=== PATIENT | female | born 1990 | race Caucasian/White ===

== ENCOUNTER 2020-09-12 09:52 | Outpatient (RCR) | payer OTHER, SELFPAY ==
[2020-09-12 11:47] LABS: Glucose 1 Hour PP 50gm Dose 46 mg/dL
[2020-09-12 12:29] LABS: HIV 1/2 Ab P24 Ag Result Negative (Negative)
[2020-09-13] MEDS: RHO(D) IMMUNE GLOBULIN 300 MCG/2 ML SYRINGE IM (13:13)
[2020-09-13 13:26] LABS: Rapid Plasma Reagin Non-Reactive (NonReactive)
== END 2020-12-11 23:59 | disposition home or self-care (01) ==
LOC: ANHLAB 09:52
PROVIDERS: Visit Provider Obstetrics & Gynecology
DX: Z11.4 Encounter for screening for human immunodeficiency virus [HIV] (principal); Z29.13 Encounter for prophylactic Rho(D) immune globulin; O36.0130 Maternal care for anti-D [Rh] antibodies, third trimester, not applicable or unspecified; Z3A.00 Weeks of gestation of pregnancy not specified
CPT/HCPCS: 36415; 82947; 85461; 86592; 86703; 90384; 96372; G0432; J2790

== ENCOUNTER 2020-11-16 08:05 | Emergency (ER) | payer OTHER, SELFPAY ==
--- NOTE | ~2020-11-16 | CT_ITS ---
EXAMINATION: CT brain wo/w con DATE: 11/16/2020 11:52 INDICATION: Headache. TECHNIQUE: Computed tomography (CT) of the head was performed without and with 100 mL Omnipaque 350 i ntravenous contrast. The mA was adjusted according to patient size. Iterative reconstruction techniqu e was employed. The dose-length product was 1210.67 mGy-cm. COMPARISON: None FINDINGS: There is no intracranial hemorrhage, acute infarction, or abnormal intracranial mass lesion . The pituitary is normal in size. The dural venous sinuses are normal. The ventricles are normal in size. There is mild mucosal thickening in the ethmoid sinuses. There are no pathologically enlarged l ymph nodes. The mastoid air cells are normal. IMPRESSION: 1. Normal brain. Reviewed, dictated and finalized at location A. IMPRESSION: 1. Normal brain.
[2020-11-16 08:10] VITALS: BP 155/105; PULSE 90; RESP 20; TEMP 36.1; O2SAT 100
--- NOTE | 2020-11-16 09:32 | ED.HA ---
HPI - Headache General Chief Complaint: Headache Stated Complaint: headache Time Seen by Provider: 11/16/20 09:04 Source: patient Mode of arrival: ambulatory Limitations: no limitations History of Present Illness HPI Narrative: Patient is a 30 year old female who presents with a headache starting last pm. She reports she is 5 days post from c section. She reports delivery at [facility] for high risk with preeclampsia monitoring. She reports gestational hypertension. No hypertension in the past. She reports being seen at [facility] for headache last p.m. with elevated blood pressure. She reports being given medication in the ED for hypertension and [facility] which she has not picked up as of this time. She reports increased headache this am. She denies chest pain, shortness of breath, abdominal pain or fever. She denies other complaints at this time. She reports no significant medical history. elicited complaint: headache Related Data Home Medications Medication Instructions Recorded Confirmed Adults Multivitamin 1 tablet PO DAILY 06/10/19 06/10/19 Allergies Allergy/AdvReac Type Severity Reaction Status Date / Time NSAIDS (Non-Steroidal AdvReac Intermediate Nausea and Verified 06/10/19 19:16 Anti-Inflamma Vomiting Review of Systems Review of Systems: Narrative: CONSTITUTIONAL: Denies fever, chills, or sweats. EYES: Denies visual changes, redness, or discharge. ENT: Denies rhinorrhea, congestion, sore throat, or otalgia. CARDIOVASCULAR: Denies chest pain, palpitations, or edema. RESPIRATORY: Denies cough or dyspnea. GASTROINTESTINAL: Denies abdominal pain, nausea, vomiting, or diarrhea. GENITOURINARY: Denies dysuria or hematuria. SKIN: Denies rash or itching. MUSCULOSKELETAL: Denies back pain, joint pain, or myalgia. NEUROLOGIC: Reports headache, denies numbness, dizziness, or weakness. PSYCHIATRIC: Denies anxiety or depression. PEND[facility] SALE TO [facility] Past Medical History Medical History Gestational hypertension Pancreatitis Surgical History Surgical History H/O gastric bypass Family History Family History Father Family history of mental disorder Depression Hypertension Family history of obesity Mother Depression Hypertension Family history of diabetes mellitus in first degree relative Family history of neuropathy Grandparent Hypertension Family history of coronary artery disease Social History Social History (Updated 11/16/20 @ 09:38 by JOMAR Camara) Smoking status: Never smoker Alcohol intake: current Alcohol use details: Intermittent Substance use: never Living arrangements: with family Exam Narrative: Exam Narrative: GENERAL: Well-appearing, well-nourished, and in no acute distress. HEAD: Normocephalic, atraumatic. EYES: EOMI. No redness or drainage. Conjunctiva are normal. ENT: Mucous membranes pink and moist. CHEST: No respiratory distress. Clear to auscultation. HEART: Regular rate and rhythm. No murmur appreciated. Normal peripheral pulses. GI: Soft, nontender without rebound, or guarding. No distention. Bowel sounds normal in all quadrants. Healing surgical incision. MUSCULOSKELETAL: No bony tenderness. EXTREMITIES: Normal range of motion. No edema. SKIN: Warm, dry, no rash. Healing surgical incision. NEURO: No focal deficits. Alert and oriented x3. Gait steady. PSYCH: Normal affect. No signs of depression or anxiety. Course Vital Signs Vital signs: Vital Signs Temperature 36.1 C L 11/16/20 08:10 Pulse Rate 90 11/16/20 08:10 Respiratory Rate 20 11/16/20 08:10 Blood Pressure 155/105 H 11/16/20 08:10 Pulse Oximetry 100 11/16/20 08:10 Temperature 36.7 C 11/16/20 15:06 Pulse Rate 76 11/16/20 15:06 Respi
[2020-11-16] MEDS: SODIUM CHLORIDE 0.9% IV 1,000 ML 999 ML IV CONT (09:51)
[2020-11-16 10:10] LABS: Basophils Absolute Auto 0.1 K/mm3 (0.0-0.1); Basophils Percent Auto 0.9 % (0.2-1.2); Eosinophils Absolute Auto 0.3 K/mm3 (0-0.3); Eosinophils Percent Auto 3.6 % (0-4.4); Hematocrit 34.7 % (37.0-47.0); Hemoglobin 10.8 g/dL (12.0-15.0); Immature Granulocyte Absolute 0.05 K/mm3 (0.00-0.031); Immature Granulocyte Percent A 0.7 % (0-0.5); Lymphocytes Absolute Auto 1.89 K/mm3 (0.9-3.2); Lymphocytes Percent Auto 27.3 % (18.3-44.2); Mean Corpuscular HGB Conc 31.1 g/dl (32-36); Mean Corpuscular Hemoglobin 26.4 pg (26-34); Mean Corpuscular Volume 84.8 fl (80-100); Mean Platelet Volume 10.7 fl (7.4-10.4); Monocytes Absolute Auto 0.6 K/mm3 (0.1-0.6); Monocytes Percent Auto 8.8 % (2.6-8.5); Neutrophils Absolute Auto 4.1 K/mm3 (1.3-6.7); Neutrophils Percent Auto 58.7 % (45.5-73.1); Platelet Count Result 364 k/mm3 (150-375); Red Blood Count 4.09 M/mm3 (4.2-5.4); Red Cell Distribution Width 13.8 % (11.5-14.5); White Blood Count 6.9 K/mm3 (4.5-10.0)
[2020-11-16 10:13] LABS: Add Urine Microscopic? NO; Appearance Urine Clear (Clear); Bilirubin Urine Negative (Negative); Blood Urine Negative (Negative); Color Urine Straw (Yellow); Glucose Urine UA Negative (Negative); Ketones Urine Negative (Negative); Leukocyte Esterase Ur Negative LEU/UL (Negative); Nitrate Urine Negative (Negative); Protein Urine Negative (Negative); Specific Grav Ur 1.011 (1.001-1.035); Urobilinogen Urine Negative mg/dL (<2.0)
[2020-11-16 10:19] LABS: Alanine Aminotransferase 19 U/L (4-35); Albumin Level 3.1 g/dL (3.5-5.1); Alkaline Phosphatase 117 U/L (38-126); Anion Gap 8 mmol/L (8-16); Aspartate Amino Transferase 34 U/L (14-36); Bilirubin,Total 0.4 mg/dL (0.2-1.3); Blood Urea Nitrogen 10 mg/dL (7-17); Calcium 8.6 mg/dL (8.4-10.2); Carbon Dioxide 25 mmol/L (22-30); Chloride 108 mmol/L (98-107); Estimated CRCL calculation 176 ml/min; Estimated Glomerular Filt Rate > 60; Glucose 78 mg/dL (65-105); Potassium 3.8 mmol/L (3.4-5.0); Sodium 141 mmol/L (137-145)
[2020-11-16 10:36] VITALS: BP 138/91; PULSE 70; RESP 16; O2SAT 100
[2020-11-16] MEDS: MAGNESIUM SULF 2 GM/WATER 50ML 2 GM/50 ML BAG IVPB (11:59)
[2020-11-16 12:43] LABS: Uric Acid 5.9 mg/dL (2.5-7.5)
[2020-11-16 13:10] VITALS: BP 124/68; PULSE 84; RESP 16; O2SAT 99
[2020-11-16 15:06] VITALS: BP 139/97; PULSE 76; RESP 18; TEMP 36.7; O2SAT 100
[2020-11-16] MEDS: NIFEdipine 30 MG TAB.ER.24 PO (16:04)
== END 2020-11-16 15:59 | disposition home or self-care (01) ==
PROVIDERS: Emergency Medicine; Emergency Provider Nurse Practitioner
DX: O90.89 Other complications of the puerperium, not elsewhere classified (principal); R51.9 Headache, unspecified; O13.5 Gestational [pregnancy-induced] hypertension without significant proteinuria, complicating the puerperium; O99.845 Bariatric surgery status complicating the puerperium
CPT/HCPCS: 36415; 70470; 80053; 81003; 84550; 85025; 96361; 96365; 96367; 99284; A9270; J0131; J3475; J7030; Q9967

== ENCOUNTER 2021-08-22 12:48 | Emergency (ER) | payer OTHER, SELFPAY ==
[2021-08-22 13:02] VITALS: BP 138/81; PULSE 80; RESP 18; TEMP 36.8; O2SAT 100
--- NOTE | 2021-08-22 15:04 | ED.HA ---
HPI - Headache General Chief Complaint: Headache Stated Complaint: SEPULVEDA 48hr referred from OB 12 wks Time Seen by Provider: 08/22/21 14:29 Source: patient Mode of arrival: ambulatory Limitations: no limitations History of Present Illness HPI Narrative: Patient is a 31-year-old female , currently 12 weeks , who presents to the ED with complaints of a sharp diffuse headache x2 days. Patient reports she has had headaches intermittently throughout this , but they were always brief and could be relieved with Tylenol. She has tried taking Tylenol for her current pain without relief. She also reports having photophobia and nausea due to the pain and one episode of vomiting. Patient has history of gestational hypertension. She takes labetalol 200 mg twice daily. She has not been recording her blood pressure at home but was referred to the ED by her CARE TAKER, Dr. Parsons, for further evaluation of her headache. Patient's BP upon arrival was 138/81. Patient denies any fever, chills, neck pain, abdominal pain, diarrhea, vaginal bleeding, vaginal leakage of fluid, vision changes, BLE swelling or pain. Related Data Home Medications Medication Instructions Recorded Confirmed Adults Multivitamin 1 tablet PO DAILY 06/10/19 06/10/19 Allergies Allergy/AdvReac Type Severity Reaction Status Date / Time NSAIDS (Non-Steroidal AdvReac Intermediate Nausea and Verified 06/10/19 19:16 Anti-Inflamma Vomiting Review of Systems Review of Systems: CONSTITUTIONAL: Denies fever, chills, or sweats. EYES: Reports photophobia. Denies visual changes, redness, or discharge. CARDIOVASCULAR: Denies chest pain or edema. RESPIRATORY: Denies cough or dyspnea. GASTROINTESTINAL: Reports nausea, vomiting X1. Denies abdominal pain or diarrhea. GENITOURINARY: Denies vaginal bleeding, dysuria, or hematuria. SKIN: Denies rash or itching. MUSCULOSKELETAL: Denies back pain, neck pain, joint pain, or myalgia. NEUROLOGIC: Reports diffuse headache. Denies numbness, weakness. All systems reviewed & are unremarkable except as noted in HPI and below PMFSH Past Medical History Medical History Gestational hypertension Pancreatitis Surgical History Surgical History H/O gastric bypass Family History Family History Father Family history of mental disorder Depression Hypertension Family history of obesity Mother Depression Hypertension Family history of diabetes mellitus in first degree relative Family history of neuropathy Grandparent Hypertension Family history of coronary artery disease Social History Social History Smoking status: Never smoker Alcohol intake: current Alcohol use details: Intermittent Substance use: never Exam Narrative: GENERAL: Well appearing, well-nourished, non-toxic, in no acute distress. HEAD: Normocephalic, atraumatic. EYES: PERRLA/EOMI, conjunctivae clear bilaterally NECK: Supple. No adenopathy, no masses. RESPIRATORY: Airway patent, respirations nonlabored. Clear to auscultation bilaterally, no rales, rhonchi, wheezing. CARDIOVASCULAR: Regular rate and rhythm without murmurs, rubs, or gallops. Peripheral pulses 2+ and equal bilaterally. ABDOMINAL: Soft, nontender, nondistended, no hepatosplenomegaly. Normoactive BS. Unable to palpate top of fundus. MUSCULOSKELETAL: Moves all extremities. Strength/ROM intact without gross deformities or TTP. No edema. No calf tenderness. SKIN: Warm, dry, normal color. No rashes. NEURO: A&O X3. Speech clear. Cranial nerves II-XII intact. Steady gait. No ataxic movements. PSYCHIATRIC: Appropriate mood and affect. Normal interaction. Course Consultations Consultation #1: Discussed with Dr. Parsons, CARE TAKER patient presentation and workup. Agrees w
[2021-08-22] MEDS: SODIUM CHLORIDE 0.9% IV 1,000 ML 999 ML IV CONT (15:28)
[2021-08-22] MEDS: ONDANSETRON INJ 4 MG/2 ML VIAL IV PUSH (15:29)
[2021-08-22 15:49] LABS: Basophils Percent Auto 0.4 % (0.2-1.2); Eosinophils Absolute Auto 0.3 K/mm3 (0-0.3); Eosinophils Percent Auto 3.3 % (0-4.4); Hematocrit 35.1 % (37.0-47.0); Hemoglobin 10.8 g/dL (12.0-15.0); Immature Granulocyte Absolute 0.02 K/mm3 (0.00-0.031); Immature Granulocyte Percent A 0.3 % (0-0.5); Lymphocytes Absolute Auto 2.46 K/mm3 (0.9-3.2); Lymphocytes Percent Auto 32.8 % (18.3-44.2); Mean Corpuscular HGB Conc 30.8 g/dl (32-36); Mean Corpuscular Hemoglobin 24.2 pg (26-34); Mean Corpuscular Volume 78.5 fl (80-100); Mean Platelet Volume 11.6 fl (7.4-10.4); Monocytes Absolute Auto 0.5 K/mm3 (0.1-0.6); Monocytes Percent Auto 6.8 % (2.6-8.5); Neutrophils Absolute Auto 4.2 K/mm3 (1.3-6.7); Neutrophils Percent Auto 56.4 % (45.5-73.1); Platelet Count Result 299 k/mm3 (150-375); Red Blood Count 4.47 M/mm3 (4.2-5.4); Red Cell Distribution Width 15.9 % (11.5-14.5); White Blood Count 7.5 K/mm3 (4.5-10.0)
[2021-08-22 15:53] LABS: Add Urine Microscopic? YES; Appearance Urine Cloudy (Clear); Bilirubin Urine Negative (Negative); Blood Urine Negative (Negative); Color Urine Yellow (Yellow); Glucose Urine UA Negative (Negative); Ketones Urine Negative (Negative); Leukocyte Esterase Ur Negative LEU/UL (Negative); Mucus Urine Rare /lpf; Nitrate Urine Negative (Negative); Protein Urine Negative (Negative); RBC Urine 0-2 /hpf (0-2); Squamous Epithelial Cell Urine Occasional /hpf (Few); Urobilinogen Urine Negative mg/dL (<2.0); WBC Urine 0-3 /hpf
[2021-08-22 15:59] LABS: Alanine Aminotransferase 36 U/L (4-35); Alkaline Phosphatase 62 U/L (38-126); Anion Gap 6 mmol/L (8-16); Aspartate Amino Transferase 44 U/L (14-36); Bilirubin,Total 0.3 mg/dL (0.2-1.3); Blood Urea Nitrogen 10 mg/dL (7-17); Carbon Dioxide 25 mmol/L (22-30); Chloride 105 mmol/L (98-107); Estimated CRCL calculation 147 ml/min; Estimated Glomerular Filt Rate > 60; Glucose 74 mg/dL (65-110); Sodium 136 mmol/L (137-145)
[2021-08-22 18:21] VITALS: BP 128/89; PULSE 60; RESP 12; TEMP 37.1; O2SAT 100
== END 2021-08-22 18:25 | disposition home or self-care (01) ==
PROVIDERS: Physician Assistant; Emergency Provider Emergency Medicine
DX: O26.891 Other specified pregnancy related conditions, first trimester (principal); R51.9 Headache, unspecified; Z3A.12 12 weeks gestation of pregnancy
CPT/HCPCS: 36415; 80053; 81001; 84702; 85025; 96365; 96366; 96375; 99284; J0131; J2405; J7030

== ENCOUNTER 2021-12-05 23:23 | Outpatient (RCR) | payer OTHER, SELFPAY ==
[2021-12-03 14:50] LABS: Hematocrit 28.1 % (37.0-47.0); Hemoglobin 8.5 g/dL (12.0-15.0)
[2021-12-03 15:05] LABS: Glucose 1 Hour PP 50gm Dose 96 mg/dL
[2021-12-03 17:48] LABS: HIV 1/2 Ab P24 Ag Result Negative (Negative)
[2021-12-05] MEDS: RHO(D) IMMUNE GLOBULIN 300 MCG/2 ML SYRINGE IM (23:43)
== END 2022-03-03 23:59 | disposition home or self-care (01) ==
LOC: ANHLAB 23:23
PROVIDERS: PCP Hospitalist; Visit Provider Advanced Practice Midwife
DX: Z11.4 Encounter for screening for human immunodeficiency virus [HIV] (principal); Z29.13 Encounter for prophylactic Rho(D) immune globulin; O36.0130 Maternal care for anti-D [Rh] antibodies, third trimester, not applicable or unspecified; Z3A.00 Weeks of gestation of pregnancy not specified
CPT/HCPCS: 36415; 82947; 85014; 85018; 85461; 86703; 90384; 96372; G0432; J2790

== ENCOUNTER 2021-12-24 10:02 | Emergency (ER) | payer OTHER, SELFPAY ==
[2021-12-24 10:04] VITALS: BP 133/85; PULSE 85; RESP 20; TEMP 36.6; O2SAT 100
--- NOTE | 2021-12-24 10:38 | ED.DENTAL ---
HPI - Dental/Oral General Chief complaint: Dental/Oral Stated complaint: dental pain Time Seen by Provider: 12/24/21 10:30 History of Present Illness HPI Narrative: 31-year-old 31-year-old female presents emergency room secondary to dental pain. She has had a tooth in the left upper molar region that has broken off. She been trying to get into see a dentist. The dentist she normally sees states she can get in for 6 months. She try the dental school and they state that they probably can get her in in January. She states the pain is gotten worse and not controlled with [id number] medication at this time. Denies any chills or fevers. Her she tries to chew on that side. Related Data Home Medications Medication Instructions Recorded Confirmed aspirin 81 mg tablet 81 mg PO DAILY 12/19/21 12/21/21 ferrous sulfate 325 mg (65 mg 325 mg PO BID 12/19/21 12/21/21 iron) tablet labetalol 200 mg tablet 1 tablet PO DAILY 12/19/21 12/21/21 prenat.vits,darrell,[id number] 1 tablet PO DAILY 12/19/21 12/21/21 Allergies Allergy/AdvReac Type Severity Reaction Status Date / Time NSAIDS (Non-Steroidal AdvReac Intermediate Nausea and Verified 12/24/21 10:08 Anti-Inflamma Vomiting Review of Systems Review of Systems: CONSTITUTIONAL: Denies fever, chills, or sweats. EYES: Denies visual changes, redness, or discharge. ENT: Denies rhinorrhea, congestion, sore throat, or otalgia. Dental pain CARDIOVASCULAR: Denies chest pain, palpitations, or edema. RESPIRATORY: Denies cough or dyspnea. GASTROINTESTINAL: Denies abdominal pain, nausea, vomiting, or diarrhea. GENITOURINARY: Denies dysuria or hematuria. SKIN: Denies rash or itching. MUSCULOSKELETAL: Denies back pain, joint pain, or myalgia. NEUROLOGIC: Denies headache, numbness, or weakness. PSYCHIATRIC: Denies anxiety or depression. [facility] Past Medical History Medical History Gestational hypertension Pancreatitis Surgical History Surgical History H/O gastric bypass Family History Family History Father Family history of mental disorder Depression Hypertension Family history of obesity Mother Depression Hypertension Family history of diabetes mellitus in first degree relative Family history of neuropathy Grandparent Hypertension Family history of coronary artery disease Social History Social History Smoking status: Never smoker Alcohol intake: current Alcohol use details: Intermittent Substance use: never Exam Narrative: APPEARANCE: Well appearing, no pain or distress, well-nourished. Head normocephalic and atraumatic. EYES: PERRLA/EOMI, conjunctivae very clear. NOSE: Normal with no drainage EARS:TMS clear Jyoti Wall, with good light reflex. THROAT: Pharynx clear, no exudate. Dental carry noted to the left upper molar noted to be chipped off. Some tenderness to palpation of the cheek in that area. No large abscess at this time. NECK: Supple. No adenopathy, no masses. RESPIRATORY: Airway patent, respirations nonlabored. Clear to auscultation bilaterally, no rales, rhonchi, wheezing. CARDIOVASCULAR: Regular rate and rhythm without murmurs, rubs, or gallops. ABDOMINAL: Soft, nontender, nondistended, no hepatosplenomegaly Musculoskeletal: Moves all extremities. Strength/ROM intact, No edema, No calf tenderness. NEURO: Alert. Cranial nerves II through XII intact. Normal gait. Good coordination. Nonfocal examination. SKIN:: Warm, dry. Normal Color PSYCHIATRIC: Normal affect/mood, normal interaction Course Vital Signs Vital signs: Vital Signs Temperature 97.9 F 12/24/21 10:04 Pulse Rate 85 12/24/21 10:04 Respiratory Rate 20 12/24/21 10:04 Blood Pressure 133/85 12/24/21 10:04 Pulse Oximetry 100 12/24/21 10:04 Oxygen D
== END 2021-12-24 10:39 | disposition home or self-care (01) ==
PROVIDERS: Emergency Provider Emergency Medicine; PCP Hospitalist
DX: K04.7 Periapical abscess without sinus (principal); K02.9 Dental caries, unspecified; Z98.84 Bariatric surgery status; Z79.82 Long term (current) use of aspirin
CPT/HCPCS: 99283

== ENCOUNTER 2022-01-17 23:19 | Outpatient (RCR) | payer OTHER, SELFPAY ==
[2022-01-17 23:53] VITALS: BP 114/65; PULSE 65
== END 2022-03-13 10:05 | disposition home or self-care (01) ==
LOC: ANHOBOP 23:19
PROVIDERS: PCP Hospitalist; Visit Provider Obstetrics & Gynecology
DX: O16.3 Unspecified maternal hypertension, third trimester (principal); Z3A.33 33 weeks gestation of pregnancy
CPT/HCPCS: 59025

== ENCOUNTER 2022-02-25 15:50 | Outpatient (CLI) | payer OTHER, SELFPAY ==
[2022-02-25 16:41] LABS: Hematocrit 31.7 % (37.0-47.0); Hemoglobin 10.4 g/dL (12.0-15.0); Mean Corpuscular HGB Conc 32.8 g/dl (32-36); Mean Corpuscular Hemoglobin 26.8 pg (26-34); Mean Corpuscular Volume 81.7 fl (80-100); Mean Platelet Volume 10.5 fl (7.4-10.4); Platelet Count Result 270 k/mm3 (150-375); Red Blood Count 3.88 M/mm3 (4.2-5.4); White Blood Count 7.8 K/mm3 (4.5-10.0)
[2022-02-25 17:34] LABS: HIV 1/2 Ab P24 Ag Result Negative (Negative)
[2022-02-26 15:00] LABS: Rapid Plasma Reagin Non-Reactive (NonReactive)
== END 2022-02-25 15:51 | disposition home or self-care (01) ==
LOC: ANHOBOP 15:51
PROVIDERS: PCP Hospitalist; Visit Provider Obstetrics & Gynecology
DX: Z34.90 Encounter for supervision of normal pregnancy, unspecified, unspecified trimester (principal); Z3A.00 Weeks of gestation of pregnancy not specified
CPT/HCPCS: 36415; 85027; 86592; 86703; 86850; 86880; 86900; 86901; G0432

== ENCOUNTER 2022-02-26 05:35 | Inpatient (IN) | payer OTHER, SELFPAY ==
[2022-02-26] VITALS (48 sets, daily range): BP systolic 74–192; BP diastolic 34–155; PULSE 53–167; RESP 10–18; TEMP 36.3–36.9; O2SAT 84–100; BMI 41.1
--- NOTE | 2022-02-26 06:25 | LDADM ---
This patient, Thi Kirby, was admitted to Labor/Delivery/Recovery 120 on 02/26/22 at 05:35. Plans for labor, pain management and were discussed with patient. Patient/family oriented to hospital policies and general routines including ID bracelet, bed and alarms, visiting hours, pain management, procedures, bathroom and other care routines, personal items, smoking policy, room service/diet and guest tray routines, infant security routines, and visiting hours. Patient/Family are encouraged to report perceived risks to care and to ask questions if they do not understand what they are told or what they should do. See OBIX for further documentation.
[2022-02-26] MEDS: LACTATED RINGERS 1,000 ML 125 ML IV CONT ×2 (06:32→09:26)
--- NOTE | 2022-02-26 06:50 | WPDANESEPPF ---
Anes - Initial Pre Proc Eval Procedure: Operation Date: 02/26/22 07:30 Proposed Procedures p Repeat Section - Maddie Parsons MD Date/Time: 02/26/22 06:50 Surgeon: Maddie Parsons MD Pre Op Diagnosis: section Patient Data Age: 32 Gender: F Height: 1.65 m Weight: 112 kg Last Vital Signs Pulse 74 02/26/22 06:39 BP 123/73 02/26/22 06:39 O2 Del Method Room Air 02/26/22 06:12 Allergies Allergy/AdvReac Type Severity Reaction Status Date / Time NSAIDS (Non-Steroidal AdvReac Intermediate Nausea and Verified 01/02/22 08:50 Anti-Inflamma Vomiting Home Medications Medication Instructions Recorded Confirmed Type prenat.vits,darrell,[id number] 1 tablet PO DAILY 12/19/21 02/26/22 History Patient hx anesthesia problems: none Family hx anesthesia problems: none Results Review: All pre-operative results and documents have been reviewed as part of the pre-operative evaluation. [facility] Past Medical History Medical History Gestational hypertension Pancreatitis Surgical History Surgical History H/O gastric bypass Family History Family History Father Family history of mental disorder Depression Hypertension Family history of obesity Mother Depression Hypertension Family history of diabetes mellitus in first degree relative Family history of neuropathy Grandparent Hypertension Family history of coronary artery disease Social History Social History Smoking status: Never smoker Alcohol intake: current Alcohol use details: Intermittent Substance use: never Spiritual care concerns: No Anes - Eval Final PreProcedure Day of Procedure 02/26/22 06:50 Patient weight: morbidly obese Heart: regular rate and rhythm Lungs: clear to auscultation and normal air movement Airway: Mallampati scale class II Neurological: alert and oriented Last oral intake: >/= 8 hours ASA classification: III Emergent: no Anesthetic plan: proceed Anesthesia type and monitoring: regional spinal and standard monitoring Results Review: All pre-operative results and documents have been reviewed as part of the pre-operative evaluation. Informed Consent: The patient's anesthetic plan and its attendant risks and benefits were discussed with the patient/family/POA. Questions were solicited and answers provided to the satisfaction of the patient/family/POA.
--- NOTE | 2022-02-26 07:31 | WPDHPUPDATE1 ---
History and Physical Update Update Date/Time: 02/26/22 07:31 History and Physical has been reviewed, including an updated exam of the patient. There are NO changes in the patient's condition. Risks, benefits, and alternatives have been discussed and questions answered. Patient agrees to proceed with procedure.
--- NOTE | 2022-02-26 07:31 | PM.IMHP ---
H&P: HPI History of Present Illness Date/Time: 02/26/22 07:31 Chief Complaint: term gestation Narrative: this patient is a 32-year-old multiparous female at 39 weeks gestation with previous delivery. We have agreed to perform repeat delivery. She has no complaints. She denies any nausea, vomiting, fever, chills denies any chest pain or shortness of breath. She denies any contractions, loss of fluid, vaginal bleeding. Review of Systems Review of Systems: All systems reviewed & are unremarkable except as noted in HPI and below Constitutional: Constitutional: Denies chills, Denies fatigue, Denies fever(s) and Denies weakness Eyes: Eyes: Denies blurry vision, Denies change in vision, Denies loss of peripheral vision, Denies loss of vision, Denies other visual disturbances and Denies eye pain ENT: Denies vertigo, Denies dizziness, Denies hearing loss, Denies mouth pain, Denies nasal obstruction, Denies neck mass and Denies neck pain Cardiovascular: Cardiovascular: Denies chest pain, Denies diaphoresis, Denies syncope, Denies leg edema and Denies dyspnea Respiratory: Respiratory: Denies chest congestion, Denies cough, Denies hemoptysis, Denies dyspnea and Denies wheezing Gastrointestinal: Gastrointestinal: Denies abdominal pain, Denies constipation, Denies diarrhea, Denies nausea and Denies vomiting Genitourinary: Genitourinary: Denies hematuria, Denies change in libido, Denies nocturia, Denies genital lesions, Denies flank pain and Denies urinary urgency Musculoskeletal: Musculoskeletal: Denies abnormal gait, Denies back pain, Denies myalgias, Denies arthralgias, Denies joint swelling, Denies muscle weakness and Denies neck pain Integumentary/Breasts: Skin/Breast: Denies swelling, Denies breast pain, Denies breast mass, Denies dry skin, Denies nipple discharge, Denies unusual bruising and Denies jaundice Neurologic: Denies Neuro-related abnormal movements, Denies Abnormal speech present, Denies abnormal gait, Denies behavioral changes, Denies confusion, Denies vertigo, Denies dizziness, Denies syncope, Denies loss of vision, Denies memory loss, Denies convulsions and Denies weakness Psychiatric: Psychiatric: Denies abnormal sleep pattern, Denies behavioral changes, Denies change in libido, Denies confusion, Denies depression, Denies anhedonia and Denies memory loss Endocrine: Endocrine: Reports no additional endocrine complaints, Denies change in libido and Denies fatigue Hematologic/Lymphatic: Hematologic/Lymphatic: Reports no additional hematologic/lymphatic complaints Allergic/Immunologic: Allergic/Immunologic: Reports no additional allergic/immunologic complaints and Denies wheezing PMFSH Past Medical History Medical History Gestational hypertension Pancreatitis Surgical History Surgical History H/O gastric bypass Family History Family History Father Family history of mental disorder Depression Hypertension Family history of obesity Mother Depression Hypertension Family history of diabetes mellitus in first degree relative Family history of neuropathy Grandparent Hypertension Family history of coronary artery disease Social History Social History Smoking status: Never smoker Alcohol intake: current Alcohol use details: Intermittent Substance use: never Spiritual care concerns: No Meds Home Medications and Allergies Home Medications Medication Instructions Recorded Confirmed Type prenat.vits,darrell,[id number] 1 tablet PO DAILY 12/19/21 02/26/22 History Allergies Allergy/AdvReac Type Severity Reaction Status Date / Time NSAIDS (Non-Steroidal AdvReac Intermediate Nausea and Verified 01/02/22 08:50 Anti-Inflamma Vomiting Vital Signs Vit
--- NOTE | 2022-02-26 07:33 | WPDHPUPDATE1 ---
History and Physical Update Update Date/Time: 02/26/22 07:33 History and Physical has been reviewed, including an updated exam of the patient. There are NO changes in the patient's condition. Risks, benefits, and alternatives have been discussed and questions answered. Patient agrees to proceed with procedure.
[2022-02-26] MEDS: ceFAZolin 2 GM/D5W 50 ML 2 GM/50 ML BAG IVPB (07:44)
[2022-02-26 08:52] LABS: Amphetamine Screen Urine Negative (Negative); Barbiturate Screen Urine Positive (Negative); Benzodiazepines Screen Urine Negative (Negative); Cannabinoid Screen Urine Positive (Negative); Cocaine Screen Urine Negative (Negative); Methadone Screen Urine Negative (Negative); Opiate Screen Urine Negative (Negative); Phencyclidine Screen Urine Negative (Negative)
--- NOTE | 2022-02-26 09:06 | W.PM.PROC2 ---
Procedure Note - Detailed Date of Procedure 02/26/22 Pre-op Diagnosis Previous section Post-op Diagnosis Same Procedure Performed repeat low-transverse section. Surgeon Maddie Parsons MD Anesthesia Spinal Findings Normal gestational maternal anatomy, average size , normal Apgars. Description of Procedure The patient was taken the operating room. She was prepped and draped in dorsal supine position with a leftward tilt. This was done after spinal anesthetic was applied. A low-transverse skin incision was made and carried down till of the fascia with the knife. The fascial incision was made with the knife. The fascial incision was extended laterally with Talavera scissors. The fascia was tented upward superiorly and inferiorly the rectus muscles were dissected off bluntly. The rectus muscles were the midline. The preperitoneal fat and peritoneum were dissected open bluntly at the superior aspect of the rectus muscles. The peritoneal incision was extended superior and inferior with good position of bladder. The uterine incision was made with a scalpel down to the level of the amniotic cavity. The amniotic cavity was entered bluntly. The was delivered. The cord was clamped and cut and the infant was handed off to waiting pediatric staff. Cord bloods were obtained. The placenta was removed manually. The uterus was exteriorized. The uterus was cleared of all clots, debris and membranes. The uterus was closed in 0 Vicryl running lock fashion. An imbricating over a was placed along the incision line as well. The uterus was returned to the abdomen. The gutters were cleared of all clots and debris. The fascia was closed with 0 Vicryl running fashion. The subcutaneous tissue was irrigated pinpoint bleeders were cauterized. The skin was closed with subcuticular absorbable andre. The skin incision line was covered with glue. The patient tolerated the procedure well. She has taken recovery room in stable condition. Sponge lap and needle counts were correct x2. Complications No immediate complications Condition Stable Disposition PACU
[2022-02-26] MEDS: OXYTOCIN 30 UNITS/NS 500 ML 30 UNITS/500 ML BAG 125 UNITS IV CONT (09:48)
--- NOTE | 2022-02-26 12:39 | OBPPTRN ---
1122 Patient transferred to post room #284 via stretcher. Support person present. Oriented to unit, room, information board, rooming in, admission packet and security measures. Patient verbalizes understanding.
[2022-02-26] MEDS: KCL 20 MEQ/D5/0.45% SOD CHL 1,000 ML 125 ML IV CONT (16:20)
[2022-02-26] MEDS: ONDANSETRON INJ 4 MG/2 ML VIAL IV PUSH (16:24)
--- NOTE | 2022-02-26 18:49 | PC.NURSE ---
1430 - Introductions were made, then consulted with patient to assess needs related to . Mother led the conversation with her?plans to feed?her and reports her breastfed well downstairs. Infant is skin to skin with mother making no efforts to breastfeed and not demonstrating any feeding cues. RN changed the 's diaper of large meconium and urine, then infant stooled again. placed skin to skin. Resources provided for inpatient and outpatient services using a resource guide and mom/baby guide. Mother voiced understanding of information and will call if there is a request for assistance. Mother is dozing off and father of baby is at bedside for safety of mother and baby as they rest. Reported to the primary RN.
[2022-02-27 00:05] VITALS: BP 118/73; PULSE 85; RESP 14; TEMP 36.8; O2SAT 98
[2022-02-27 04:35] VITALS: BP 122/75; PULSE 84; RESP 16; TEMP 36.9; O2SAT 99
[2022-02-27] MEDS: HYDROcodone/acetaminophen (*CRX) 10-325 MG TABLET 1 TAB PO ×4 (05:15→21:11)
[2022-02-27 07:40] VITALS: BP 117/70; PULSE 90; RESP 16; TEMP 36.9; O2SAT 98
--- NOTE | 2022-02-27 07:40 | WPDANLDPN2 ---
Anes-Prog Note L&D Date/Time: 02/27/22 07:40 Comfortable throughout: section Neuraxial method: spinal Epidural/Spinal procedure site: clean & non-tender Neuro status: Neuro function grossly intact. Cardiovascular status: normal Respiratory status: normal Airway patency: baseline Mental status: baseline Post-Op hydration status: normal Vital Signs: Last Vital Signs Temp 36.9 C 02/27/22 04:35 Pulse 84 02/27/22 04:35 Resp 16 02/27/22 04:35 BP 122/75 02/27/22 04:35 Pulse Ox 99 02/27/22 04:35 O2 Del Method Room Air 02/26/22 20:15 Pain score (VAS): 2 I/O: Intake & Output 02/26/22 02/26/22 02/27/22 15:59 23:59 07:59 Intake Total 2630 500 Output Total 1085 350 Balance 1545 150 Post-procedural complaints: none Patient feedback: Patient satisfied with anesthetic care.
--- NOTE | 2022-02-27 07:41 | WPDANLDNPN2 ---
Anes-Prog Note L&D-Neuraxial Date/Time: 02/27/22 07:41 Neuraxial medications: intrathecal PF morphine Opiod-related complaints: pruritis moderate, treatment effective Patient feedback: Patient satisfied with post-operative pain management. Comments: Patient states no nausea or pruritis this morning
--- NOTE | 2022-02-27 08:25 | PM.OBPNVD ---
OB - PN: Subj Subjective Date/time seen: 02/27/22 08:25 Patient comments: no complaints, pain well controlled, tolerating diet and flatus present OB - PN: Obj Data Labs Labs: Laboratory Results - last 24 hr 02/26/22 06:38 Urine Opiates Screen Negative Urine Methadone Screen Negative Ur Barbiturates Screen Positive A Ur Phencyclidine Scrn Negative Ur Amphetamine Screen Negative U Benzodiazepines Scrn Negative Urine Cocaine Screen Negative U Cannabinoids Screen Positive A OB - PN A/P Plan day: 1 Comments: Post Op LTCS - no problems, routine recovery Time Spent With Patient Time: Total time spent is greater than 50% in coordination of care (as documented) at patient's floor/unit and/or counseling patient: Exam Const: General: cooperative, healthy appearing, comfortable and no acute distress Resp: Auscultation: no crackles, no rales, no rhonchi and no wheezes Cardio: Rhythm: regular rhythm Heart sounds: no click and no murmurs GI: Inspection: non-distended Auscultation: normal bowel sounds Extrem: General: normal to inspection, no pedal edema and no calf tenderness
[2022-02-27] MEDS: DOCUSATE SODIUM 100 MG CAPSULE PO (09:20)
[2022-02-27] MEDS: SIMETHICONE 80 MG TAB.CHEW PO (09:20)
[2022-02-27] MEDS: MULTIVIT/MIN/PREN/FOL AC/IRON TABLET 1 TAB PO (09:20)
[2022-02-27 10:48] LABS: Basophils Percent Auto 0.3 % (0.2-1.2); Eosinophils Absolute Auto 0.1 K/mm3 (0-0.3); Eosinophils Percent Auto 0.5 % (0-4.4); Hematocrit 21.5 % (37.0-47.0); Immature Granulocyte Absolute 0.06 K/mm3 (0.00-0.031); Immature Granulocyte Percent A 0.6 % (0-0.5); Lymphocytes Absolute Auto 2.25 K/mm3 (0.9-3.2); Lymphocytes Percent Auto 23.6 % (18.3-44.2); Mean Corpuscular HGB Conc 32.6 g/dl (32-36); Mean Corpuscular Hemoglobin 27.1 pg (26-34); Mean Corpuscular Volume 83.3 fl (80-100); Monocytes Absolute Auto 0.8 K/mm3 (0.1-0.6); Monocytes Percent Auto 8.1 % (2.6-8.5); Neutrophils Absolute Auto 6.4 K/mm3 (1.3-6.7); Neutrophils Percent Auto 66.9 % (45.5-73.1); Platelet Count Result 260 k/mm3 (150-375); Red Blood Count 2.58 M/mm3 (4.2-5.4); White Blood Count 9.5 K/mm3 (4.5-10.0)
--- NOTE | 2022-02-27 13:56 | PC.NURSE ---
1052 called Lab to see if they were coming to draw lab work due to pt being a hard stick? They stated they will come soon.
--- NOTE | 2022-02-27 14:54 | PCCCNOTE ---
Addendum entered by Sara Perera, RODENT EXTERMINATOR 02/27/22 15:40: No UDS on baby. Cord blood is pending. I have provided pt. with , counseling and drug rehab resources for her review. She accepted same. Encouraged she contact any/all of interest. She states agreement. Original Note: Received referral. Pt. is positive for THC and Barbiturates on UDS. Met with pt. She confirms THC use during . She obtains it socially. She states being prescribed Fioricet for migraines by Dr. Parsons. Spoke to Dr. Parsons's office to confirm. Fioricet is a barbiturate based medication. 's office indicates last refill prescribed on 12/28. Spoke to pt.'s pharmacy and this is confirmed. Pharmacy confirms Fioricet is not to be taken daily but instructions are to take as needed. 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 She denies use of any other substances during , other than above. She lives with significant other and 2 other children, ages 6 and 1. She denies any DCFS history. She states having family and friends that are supportive. She indicates having all needed items to care for at discharge home. She is current with [facility]. Have reported pt. situation to DCFS. Investigation being initiated. Intake ID#[id number]. Have spoke to DCFS workerLizbeth at [phone]. She may visit pt. here in the hospital and will inform care coordination of same. Following.
--- NOTE | 2022-02-27 15:14 | PC.NURSE ---
[id number] Consulted with patient to assess needs related to . Mother led conversation with her experience with feeding baby so far. Mother works well with her infant and remains skin to skin with her . Reviewed working with , breast, nipples and how to protect the nipples with an optimal deep latch, good positioning, and good hand washing. Encouraged understanding the benefits of skin to skin, responding to feeding cues, frequencies of feeding 8-12 times in 24 hours (approximately 2-3 hours), duration of feedings, milk production, intake/output feeding sheet and signs of adequate intake encouraging swallowing at the breast. Mother states she has been independently her infant with no pain. States there is tenderness initially with latch but subsides quickly. is content on mother now with relaxed hands and no jaundice seen on the face, arms, hands or chest. Nipple care reviewed with optimal latch and good positioning, comfort, healing with warm, wet washcloth to rinse breast, then leave open to air-dry, colostrum may be left on nipples to dry but have clean hands when touching the nipple/breast as needed. We discussed her medical history with how it relates to milk production and her past drug use reviewing that it is advised to avoid drugs while nursing her baby. Resources used to facilitate learning were used from the visual handout/ tool/mom and baby guide. Mother voiced understanding of the education shared, calling for assistance if the does not latch or if there is discomfort with . 1115 - Mother is stimulating to encourage and voiced understanding to call for a latch assessment, if she has difficulty waking or latching her infant, or if there's pain with latching.
[2022-02-27 16:50] VITALS: BP 121/73; PULSE 84; RESP 18; TEMP 36.8; O2SAT 95
--- NOTE | 2022-02-27 18:37 | PC.NURSE ---
1700 Lizbeth Ocasio with DCFS here to see pt. A copy of her ID badge is on the chart.
[2022-02-27 20:40] VITALS: BP 122/79; PULSE 85; RESP 16; TEMP 36.8; O2SAT 98
[2022-02-28] VITALS (11 sets, daily range): BP systolic 124–149; BP diastolic 75–97; PULSE 84–98; RESP 16–18; TEMP 36.6–36.9; O2SAT 96–100
[2022-02-28] MEDS: HYDROcodone/acetaminophen (*CRX) 5-325 MG TABLET 1 TAB PO ×4 (00:44→17:00)
[2022-02-28] MEDS: HYDROcodone/acetaminophen (*CRX) 10-325 MG TABLET 1 TAB PO ×2 (05:39→19:53)
--- NOTE | 2022-02-28 07:49 | PM.OBPNVD ---
OB - PN: Subj Subjective Date/time seen: 02/28/22 07:49 s/p section day 2, c/o pain from surgery OB - PN: Obj Data Labs CBC & Chem 7: 02/27/22 10:39 Labs: Laboratory Results - last 24 hr 02/27/22 10:39 WBC 9.5 RBC 2.58 L Hgb 7.0 L D Hct 21.5 L MCV 83.3 MCH 27.1 MCHC 32.6 RDW 18.0 H Plt Count 260 MPV 10.0 Immature Gran % (Auto) 0.6 H Neut % (Auto) 66.9 Lymph % (Auto) 23.6 Ramsey % (Auto) 8.1 Eos % (Auto) 0.5 Baso % (Auto) 0.3 Lymph # (Auto) 2.25 Ramsey # (Auto) 0.8 H Eos # (Auto) 0.1 Baso # (Auto) 0.0 Abs Immat Gran (auto) 0.06 H Absolute Neuts (auto) 6.4 Absolute Nucleated RBC 0.0 Nucleated RBC % 0.0 OB - PN A/P Plan day: 2 Comments: plan 2 units blood Time Spent With Patient Time: Total time spent is greater than 50% in coordination of care (as documented) at patient's floor/unit and/or counseling patient: Review of Systems Review of Systems: All systems reviewed & are unremarkable except as noted in HPI and below Exam Const: General: cooperative Resp: Effort & Inspection: normal respiratory effort GI: Other: incision CDI Psych: Appearance: grossly normal
[2022-02-28] MEDS: POLYSACCHARIDE IRON COMPLEX 150 MG CAPSULE PO ×2 (08:30→17:00)
[2022-02-28] MEDS: MULTIVIT/MIN/PREN/FOL AC/IRON TABLET 1 TAB PO (08:30)
[2022-02-28] MEDS: DOCUSATE SODIUM 100 MG CAPSULE PO ×2 (08:31→17:00)
--- NOTE | 2022-02-28 08:53 | PC.NURSE ---
Addendum entered by Jessica Ray RN 02/28/22 12:48: This discussion took place after the IV placement and mother states I bottle fed last night because of the pain . RN encouraged mother to call for assistance with the next feeding and mother voiced that she would call. Original Note: 0840 - Discussed with patient the importance of not using drugs while . Mother voiced understanding of the information.
[2022-02-28] MEDS: SODIUM CHLORIDE 0.9% IV 250 ML 30 ML IV CONT (09:50)
--- NOTE | 2022-02-28 12:49 | PC.NURSE ---
[id number] Consulted with patient to assess needs related to . Mother led conversation with her experience with feeding baby so far and states she has pain with latching and reveals bilateral nipples that are excoriated. Mother works well with her with encouragement. Infant's wet diaper is changed, then placed skin to skin with mother upright on her chest. Reviewed working with infant, breast, nipples and how to protect the nipples with an optimal deep latch, good positioning, and good hand washing. Encouraged understanding the benefits of skin to skin, responding to feeding cues, frequencies of feeding 8-12 times in 24 hours (approximately 2-3 hours), duration of feedings, milk production, intake/output feeding sheet and signs of adequate intake encouraging swallowing at the breast. Reviewed positioning and alignment, supporting breast, off-centered (asymmetrical latch) and leading with the chin with big open wide gape and using the sandwich hold. Infant latched optimally to the left breast in cross cradle position. breastfed for 10 minutes effectively without nipple misshaping. Mother states there was pain with the initial latching, then it became better, tender but better. After infant self-detached she was encouraged again with skin to skin and allowed to navigate and explore mother's chest/breast. Infant was encouraged to latch after a big, wide, open gape with mother sandwich holding her breast. Education given to mother of how to visualize suck/swallow ratios and listening for drinking at the breast. Infant was able to maintain latch without discomfort to mother after the initial pain with latching. Nipple care reviewed with optimal latch and good positioning, comfort, healing with warm, wet washcloth to rinse breast, then leave open to air-dry, colostrum may be left on nipples to dry but have clean hands when touching the nipple/breast as needed. Resources used to facilitate learning were used from the tool. Mother voiced understanding of the education shared, calling for assistance if the infant does not latch or if there is discomfort with . Reported to the primary RN.
--- NOTE | 2022-02-28 14:47 | PCCCNOTE ---
Spoke with Lizbeth at [facility]. She reports that she is waiting for call back from patient's pharmacy to verify prescription and also needs to follow up with Dr. Parsons before decision can be made by DCFS. Per nursing, possible discharge tomorrow. Will follow up with Lizbeth tomorrow for DCFS plan.
--- NOTE | 2022-02-28 16:14 | PC.NURSE ---
Patient viewed the discharge video Mother & Baby Care, The First Two Weeks . Patient was given the opportunity and encouraged to ask questions. Patient verbalized understanding of information shared and has been given the mother/baby guide for home reference.
[2022-03-01 00:15] VITALS: BP 134/81
[2022-03-01] MEDS: HYDROcodone/acetaminophen (*CRX) 10-325 MG TABLET 1 TAB PO (02:20)
[2022-03-01 05:07] LABS: Hematocrit 24.8 % (37.0-47.0); Hemoglobin 7.8 g/dL (12.0-15.0)
--- NOTE | 2022-03-01 07:48 | PM.OBPNVD ---
OB - PN: Subj Subjective Date/time seen: 03/01/22 07:48 Patient comments: no complaints, pain well controlled, incisional pain, tolerating diet and flatus present OB - PN: Obj Data Labs CBC & Chem 7: 03/01/22 03:05 Labs: Laboratory Results - last 24 hr 02/28/22 03/01/22 08:15 03:05 Hgb 7.8 L Hct 24.8 L Crossmatch See Detail OB - PN A/P Plan day: 3 Plan: routine care, discharge home and other Comments: Incision check in one week. Given precautions Time Spent With Patient Time: Total time spent is greater than 50% in coordination of care (as documented) at patient's floor/unit and/or counseling patient: Exam Const: General: comfortable, no acute distress and alert Resp: Effort & Inspection: normal respiratory effort Auscultation: no crackles, no rales and no rhonchi Cardio: Rate: regular rate Heart sounds: no click, no murmurs and no rubs GI: Inspection: non-distended GI Palp: No Tenderness to palpation present (GI) Auscultation: normal bowel sounds Other: Incision - CDI Extrem: General: normal to inspection, no pedal edema and no calf tenderness
--- NOTE | 2022-03-01 07:48 | PM.OBDSVD ---
DS: Admitting Diagnosis Discharge Date 12/29/21 Admitting Diagnosis term OB - DS: Summary OB Procedures : NST OB Procedures Intrapartum: OB Procedures: : None Peripartum Data Procedures: Procedures Operation Date: 02/26/22 07:30 Actual Procedure Side Surgeon p Repeat Section Maddie Parsons MD Time Spent with Patient Time attestation: Total time spent providing and/or coordinating discharge services: DS: Data Data Completed and Pending Labs on day of discharge: Labs from last 24 hours 03/01/22 02/28/22 03:05 08:15 Hgb 7.8 L Hct 24.8 L Crossmatch See Detail Discharge Plan Discharge Discharging Clinician: Maddie Parsons Patient Disposition: Home, Self-Care Activity: pelvic rest Diet: regular Patient Instructions: Antibiotic Form Stand Alone Forms: General Discharge Information Follow-up/Referrals: Maddie Parsons MD [Physician] - Discharge Medications: New hydrocodone-acetaminophen 5-325 mg tablet 1 tablet PO Q4H PRN (Reason: pain) Qty: 25 0RF Continued Vitamin Tablet 1 tablet PO DAILY Date of admission: 02/26/22 05:35 Primary Care Provider: ErlindaEaston Admitting Provider: Maddie Parsons Attending physician on admission: Maddie Parsons Condition: Stable
[2022-03-01 08:10] VITALS: BP 137/85; PULSE 71; RESP 18; TEMP 36.6; O2SAT 98
[2022-03-01] MEDS: POLYSACCHARIDE IRON COMPLEX 150 MG CAPSULE PO (08:35)
[2022-03-01] MEDS: DOCUSATE SODIUM 100 MG CAPSULE PO (08:37)
[2022-03-01] MEDS: HYDROcodone/acetaminophen (*CRX) 5-325 MG TABLET 1 TAB PO ×2 (08:37→14:10)
[2022-03-01] MEDS: MULTIVIT/MIN/PREN/FOL AC/IRON TABLET 1 TAB PO (08:37)
--- NOTE | 2022-03-01 12:44 | PC.NURSE ---
1240 Mother is able to independently latch with appropriate positioning/alignment. She denies any nipple discomfort after the initial latch is responsively with her nipples healing with optimal latching. is currently meeting outcomes for weight, output, jaundice and feeding frequencies of 8-12 times in 24 hours. Mother declines any additional assistance/education at this time. Reminded parents to use good handwashing technique to prevent infection. Mother is feeding appropriately for growth of infant and understands stimulating infant to eat if needed. Infant has had appropriate feedings in the last 24 hours meets the outcomes for weight, output and jaundice at this time. Mother states she is confident to continue effectively her infant at home or when to call for assistance and denies any additional assistance or education at this time. Reinforced understanding of milk production, transition of milk, signs of adequate intake, prevention/relief of engorgement, responsive after visualizing feeding cues, the different methods of stimulating infant to breastfeed 2-3 hours after the start of the last feeding, community resources, medication information reviewed per [facility] and when to call a provider using the resource of the mom and baby guide/[facility] website. Mother voiced understanding of the education shared.
--- NOTE | 2022-03-01 12:54 | PCCCNOTE ---
Spoke with Lizbeth at [facility] [phone] and she reports that she has obtained all of the info she needs and that can be discharged home with mother. KEVIN Palomo notified. Anticipate discharge today.
[2022-03-02 08:30] VITALS: BP 147/85; PULSE 79; RESP 20; TEMP 36.8; O2SAT 99
== END 2022-03-01 15:30 | disposition home or self-care (01) | DRG 540 ==
LOC: ANHLDR 05:38 → ANHOB2 11:25
PROVIDERS: Admitting Provider Obstetrics & Gynecology; PCP Hospitalist; Visit Provider Obstetrics & Gynecology
PROC: 10D00Z1 Extraction of Products of Conception, Low, Open Approach (ICD-10-PCS; CPT 59514; principal; 2022-02-26 07:30)
DX: O34.219 Maternal care for unspecified type scar from previous cesarean delivery (principal); O13.4 Gestational [pregnancy-induced] hypertension without significant proteinuria, complicating childbirth; O99.844 Bariatric surgery status complicating childbirth; Z3A.39 39 weeks gestation of pregnancy; Z37.0 Single live birth
CPT/HCPCS: 36415; 36430; 80307; 85014; 85018; 85025; 85027; 86592; 86703; 86850; 86880; 86900; 86901; 86920; A9270; G0432; J0131; J0690; J1100; J2274; J2370; J2405; J2590; J3480; J7050; J7120; P9016

== ENCOUNTER 2023-04-12 16:08 | Emergency (ER) | payer OTHER, SELFPAY ==
--- NOTE | ~2023-04-12 | XR_ITS ---
EXAMINATION: XR chest 2V Exam Date/Time: 04/12/2023 16:35 CDT HISTORY: SOB, FEVER Comparison: None. RESULT: Lines, tubes, and devices: None. Lungs and pleura: Clear. Cardiomediastinal silhouette: Normal. Other: No acute osseous or upper abdominal finding. IMPRESSION: No acute cardiopulmonary process. Reviewed, dictated and finalized at location K.
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
[2023-04-12 16:15] VITALS: BP 137/76; PULSE 95; RESP 24; TEMP 38.3; O2SAT 100
--- NOTE | 2023-04-12 16:26 | ECG_ITS ---
Measurements Intervals [place] Rate: 83 P: 33 NH: 151 QRS: 64 QRSD: 99 T: 13 QT: 328 QTc: 387 Interpretive Statements SINUS RHYTHM BASELINE ARTIFACT NORMAL ECG NO PREVIOUS ECG AVAILABLE FOR COMPARISON Electronically Signed On 04-13-2023 13:30:26 CDT by Chris Urban M.D.
[2023-04-12 17:05] VITALS: RESP 18
== END 2023-04-12 17:05 | disposition home or self-care (01) ==
PROVIDERS: Emergency Provider Nurse Practitioner Family; PCP Family Medicine
DX: B34.9 Viral infection, unspecified (principal); Z20.822 Contact with and (suspected) exposure to COVID-19
CPT/HCPCS: 71046; 87081; 87426; 87804; 87880; 93005; 99213; C9803; G0463

== ENCOUNTER 2024-04-10 12:37 | Emergency (ER) | payer OTHER, SELFPAY ==
[2024-04-10 12:46] VITALS: BP 136/81; PULSE 72; RESP 16; TEMP 36.6; O2SAT 100
--- NOTE | 2024-04-10 13:28 | ED.EAR ---
HPI - Ear Problem General Chief complaint: Ear Stated complaint: Ear Pain Time Seen by Provider: 04/10/24 13:30 Source: patient, RN notes reviewed and old records reviewed Mode of arrival: ambulatory Limitations: no limitations History of Present Illness HPI Narrative: 34year old female presents to [facility] with complaints of 2 day history of left ear pain with no drainage from ear or changes in hearing. Patient reports some recent cough and nasal drainage, Patient reports no body aches or any fevers. Patient reports some intermittent cough and sinus drainage for the past 2 weeks MD Complaint: ear pain and other (cough, sinus drainage) Location: left ear Duration: constant Severity: mild Discharge from ear: Reports no Treatment prior to arrival: none Related Data Home Medications Medication Instructions Recorded Confirmed bupropion HCl 150 mg 24 hr tablet, mg PO 04/10/24 extended release buspirone 10 mg tablet mg 04/10/24 citalopram 20 mg tablet mg 04/10/24 citalopram 40 mg tablet mg 04/10/24 semaglutide (weight loss) 0.5 mg subcut 04/10/24 mg/0.5 mL subcutaneous pen injector (Wegovy) Allergies Allergy/AdvReac Type Severity Reaction Status Date / Time NSAIDS (Non-Steroidal AdvReac Intermediate Nausea and Verified 04/10/24 12:53 Anti-Inflamma Vomiting Review of Systems Review of Systems: CONSTITUTIONAL: Denies malaise, chills, sweats, or fever. EYES: Denies visual changes, redness, or discharge. ENT: Reports rhinorrhea, congestion,no sinus pain,positive left otalgia and no sore throat. CARDIOVASCULAR: Denies chest pain, palpitations, or edema. RESPIRATORY: Reports cough.? Denies dyspnea. GASTROINTESTINAL: Denies abdominal pain, nausea, vomiting, diarrhea SKIN: Denies rash or itching. MUSCULOSKELETAL: Denies myalgia. NEUROLOGIC: Denies headache. All systems reviewed & are unremarkable except as noted in HPI and below PMFSH Past Medical History Medical History Anxiety Gestational hypertension Migraine Pancreatitis Surgical History Surgical History H/O gastric bypass Previous section x3 S/P wisdom tooth extraction Family History Family History Father Family history of mental disorder Depression Hypertension Family history of obesity Mother Depression Hypertension Family history of diabetes mellitus in first degree relative Family history of neuropathy Grandparent Hypertension Family history of coronary artery disease Social History Social History Smoking status: Never smoker Alcohol intake: current Alcohol use details: Intermittent Substance use: never Living arrangements: with family Spiritual care concerns: No Comments At time of signature, agree with nursing past medical, surgical, social and family history. There is no relevant family history pertinent to the presenting complaint Exam Narrative: GENERAL: Well-appearing, well-nourished, and in no acute distress. HEAD: Normocephalic EYES: PERRLA, conjunctivae clear ENT: Nares clear, turbinates edematous and erythematous, clear discharge. Mucous membranes moist.Left TM red, Right TM pearly arroyo with dull light reflex; no tragal tenderness. Oropharynx erythematous without lesions. Tonsils not enlarged and without exudate, no drooling, no hoarseness, no trismus, uvula midline. NECK: Supple. No lymphadenopathy CHEST: Clear to auscultation, breath sounds equal. No wheezing, rhonchi, rales, or stridor. No respiratory distress, speaks in full sentences.occasional dry cough SAO2 100% on room air HEART: Regular rate and rhythm. No murmur heard. SKIN: Warm, dry, no rash. NEURO: Alert and oriented x3. PSYCH: Normal mood and affect Course Course Emergency Course: Patient is aware of diagnosis, understands and agrees to treatment plan.? Anticipatory guidance given.? Patient agrees to follow-up as directed and is aware of reasons to seek care at the emergency department. Portions of this record may have been created with voice recognition software Level of Care: Express Care Visit Vital Signs Vital signs: Vital Signs Temperature 36.6 C 04/10/24 12:46 Pulse Rate 72 04/10/24 12:46 Respiratory Rate 16 04/10/24 12:46 Blood Pressure 136/81 04/10/24 12:46 Pulse Oximetry 100 04/10/24 12:46 Oxygen Delivery Room Air 04/10/24 12:46 Temperature 36.6 C 04/10/24 12:46 Pulse Rate 72 04/10/24 12:46 Respiratory Rate 16 04/10/24 12:46 Blood Pressure 136/81 04/10/24 12:46 Pulse Oximetry 100 04/10/24 12:46 Oxygen Delivery Room Air 04/10/24 12:46 Reviewed Medical Decision Making Differential Diagnosis Differential Diagnosis: URI,otitis media, otitis externa, viral infection Medical Records Medical records reviewed: Yes I reviewed the external patient's medical records. Vital Signs Vital Signs: Vital Signs Temperature 36.6 C 04/10/24 12:46 Pulse Rate 72 04/10/24 12:46 Respiratory Rate 16 04/10/24 12:46 Blood Pressure 136/81 04/10/24 12:46 Pulse Oximetry 100 04/10/24 12:46 Oxygen Delivery Room Air 04/10/24 12:46 Temperature 36.6 C 04/10/24 12:46 Pulse Rate 72 04/10/24 12:46 Respiratory Rate 16 04/10/24 12:46 Blood Pressure 136/81 04/10/24 12:46 Pulse Oximetry 100 04/10/24 12:46 Oxygen Delivery Room Air 04/10/24 12:46 reviewed Critical Care Time Critical Care Time Critical Care Time: No Discharge Plan Discharge Clinical Impression: Otitis media of left ear Qualifiers: Otitis media type: serous Chronicity: acute Recurrence: non-recurrent Qualified Code(s): H65.02 - Acute serous otitis media, left ear Patient Disposition: Home, Self-Care Condition: Stable Instructions: Antibiotic Form, Ear Infection (GEN) Additional Instructions: Increase fluids especially juices and water Vcly-erm-vmvwohi cough and cold medicine of your choice for your symptoms Zyrtec, Claritin or Zuly daily Tylenol or Ibuprofen for any fever or pain heat to the face 20-30 minutes 4-6 times a day for pain Salt water gargles, throat lozenges or throat sprays as desired Antibiotic as directed--finished the medication If your symptoms persist, change or worsen significantly before you can contact your personal physician then please, without delay, go to the emergency department for further evaluation. Follow-up with PCP in 7-10 days or sooner if needed Follow up with PCP soon in regards to your blood pressure which is elevated above threshold for referral. Blood pressure above 120/80 may indicate pre-hypertension. 136/81 Prescriptions: New amoxicillin-pot clavulanate 875-125 mg tablet 1 tablet PO Q12H Qty: 20 0RF Rx Instructions: take with food, take Probiotic or eat activa yogurt while on this medication No Action citalopram 40 mg tablet citalopram 20 mg tablet buspirone 10 mg tablet bupropion HCl 150 mg tablet extended release 24 hr PO Wegovy 0.5 mg/0.5 mL pen injector SUBCUT Follow-up/Referrals: Harms,Aaron Atkins M.D. [Primary Care Provider] - Time of Disposition: 13:44 Quality Harvey Coma Scale Eyes: Open Verbal: Oriented and Alert Motor: Follows Commands Harvey Coma Total Score: 15
== END 2024-04-10 13:53 | disposition home or self-care (01) ==
PROVIDERS: Emergency Provider Registered Nurse; PCP Family Medicine
DX: H65.02 Acute serous otitis media, left ear (principal); Z79.899 Other long term (current) drug therapy
CPT/HCPCS: 99213; G0463

== ENCOUNTER 2025-01-06 15:07 | Emergency (ER) | payer OTHER, MEDICAID, SELFPAY ==
--- OUTSIDE RECORDS SUMMARY | 2025-01-06 15:09 | XMS_ITS | Referral Summary ---
Author Organization [facility] Address [address] [place] [address] Care Team Providers Care Buffing Machine Operator Name Role Phone Fransico Torres Jaylyn LAYOUT OPERATOR Unavailable Aaron Bermudez MD Primary Care Provider [phone] Encounters Date Type Department Care Team Description 01/04/2025 Telephone [facility] [address] [address] Aaron Bermudez MD 01/04/2025 4:00 PM CDT Telemedicine [facility] [address] [address] Aaron Bermudez MD S/P laparoscopic cholecystectomy (Primary Dx) 12/13/2024 Telephone [facility] [address] [address] Nahed Olvera NP Prior Auth (Buspirone - APPROVED) 12/08/2024 9:30 AM CDT Office Visit [facility] [address] [address] Nahed Olvera NP Hospital discharge follow-up (Primary Dx); Adjustment disorder with anxious mood; Encounter for weight loss counseling 11/30/2024 Telephone [facility] [address] [address] Aaron Bermudez MD TARA Questions 10/18/2024 Telephone [facility] [address] [place], [place] [phone] Isabel Hawk LCSW from Last 3 Months Allergies No known active allergies Medications multivit-min/iron /folic acid/K (BARIATRIC MULTIVITAMINS ORAL) Take 1 capsule by mouth daily Active valACYclovir (VALTREX) 500 mg tablet Take 1 tablet (500 mg total) by mouth daily 05/10/20 24 Active hydrOXYzine (VISTARIL) 25 mg capsule Take 1 capsule (25 mg total) by mouth 3 (three) times a day 11/27/19 25 Active gabapentin (NEURONTIN) 300 mg capsule Take 1 capsule (300 mg total) by mouth 3 (three) times a day 11/27/19 25 Active naltrexone (DEPADE) 50 mg tablet Take 1 tablet (50 mg total) by mouth daily 11/26/19 25 Active lidocaine (LIDODERM) 5 % Place 1 patch on the skin as needed for pain Remove & discard patch within 12 hours or as directed by MD. Active busPIRone (BUSPAR) 10 mg tabletIndications :Generalized Anxiety Disorder Take 1 tablet (10 mg total) by mouth 3 (three) times a day 90 tablet 11 12/09/19 25 2025 Active ondansetron ODT (ZOFRAN-ODT) 8 mg disintegrating tablet Take 1 tablet (8 mg total) by mouth every 8 (eight) hours as needed for nausea or vomiting 18 tablet 12/14/19 25 Active traZODone (DESYREL) 100 mg tablet Take 1 tablet (100 mg total) by mouth nightly 90 tablet 01/05/[address] (PROTONIX) 40 mg EC tablet Take 1 tablet (40 mg total) by mouth daily 30 tablet 4 05/05/20 24 2024 Discontinued busPIRone (BUSPAR) 15 mg tabletIndications :Generalized Anxiety Disorder Take 1 tablet (15 mg total) by mouth 3 (three) times a day 90 tablet 11 05/18/20 24 2024 Discontinued dicyclomine (BENTYL) 10 mg capsule Take 1 capsule (10 mg total) by mouth 4 (four) times a day as needed (cramping) 60 capsule 1 06/25/19 25 2024 Discontinued(T herapy completed) buPROPion XL (WELLBUTRIN XL) 150 mg 24 hr tablet Take 1 tablet (150 mg total) by mouth every morning 30 tablet 4 07/22/19 25 2024 Discontinued citalopram (CeleXA) 40 mg tablet Take 1 tablet by mouth once daily 30 tablet 07/27/19 25 2024 Discontinued mupirocin (BACTROBAN) 2 % ointment Apply topically 3 (three) times a day 22 g 1 08/02/19 25 2024 Discontinued(T herapy completed) docusate sodium (Colace) 100 mg capsuleIndication s:constipation Take 1 capsule (100 mg total) by mouth 2 (two) times a day for 14 days 28 capsule 08/09/19 25 2024 Discontinued(T herapy completed) Narcan 4 mg/actuation spray,non-aerosol 0 08/09/19 25 2024 Discontinued(T herapy completed) tirzepatide, weight loss, (Zepbound) 2.5 mg/0.5 mL pen injector Inject 0.5 mL (2.5 mg total) under the skin every 7 days 2 mL 2 08/26/19 25 2024 Discontinued ondansetron ODT (ZOFRAN-ODT) 8 mg disintegrating tablet DISSOLVE 1 TABLET IN MOUTH EVERY 8 HOURS NEEDED FOR NAUSEA OR VOMITING 18 tablet 09/21/19 25 2024 Discontinued(R eorder) fluconazole (DIFLUCAN) 150 mg tablet Take 1 tablet (150 mg total) by mouth daily Take one tab now. Repeat in 3 days if symptoms persist. 2 tablet 09/30/19 25 2024 Discontinued tirzepatide, weight loss, (Zepbound) 5 mg/0.5 mL pen injector Inject 0.5 mL (5 mg total) under the skin every 7 days 2 mL 11/02/19 25 2024 Discontinued busPIRone (BUSPAR) 7.5 mg tablet Take 1 tablet (7.5 mg total) by mouth 3 (three) times a day 11/27/19 25 2024 Discontinued traZODone (DESYREL) 100 mg tablet Take 1 tablet (100 mg total) by mouth nightly 2024 Discontinued(R eorder) semaglutide (WEGOVY) 0.5 mg/0.5 mL auto-injector Inject 0.5 mg under the skin every 7 days 2 mL 3 12/15/19 25 2024 Discontinued(T herapy completed) Active Problems Problem Noted Date Diagnosed Date Vaginal mechelle 10/21/2024 Umbilical hernia without obstruction and without gangrene 10/21/2024 S/P laparoscopic cholecystectomy 08/17/2024 Staph infection 08/02/2024 Assessment & Plan (08/02/2024 11:34 AM SEED PRODUCTION FIELD SUPERVISOR): Will initiate oral and topical antibiotics. Discussed contagiousness so make sure to clean and avoid touching. She will call her children's tag stringer as well. RTC if worsening or not resolving. Red flags reviewed. Anemia 07/23/2024 Overview (07/23/2024): s/p Iron infusion Headache 07/23/2024 Overview (07/23/2024): Fioricet Txed- Neuro appt Dr Caballero 01/04/22 1:30 - gave no help Hypoglycemia 07/23/2024 Overview (07/23/2024): regular snacks Adjustment disorder with anxious mood 06/22/2024 Assessment & Plan (12/08/2024 12:27 PM CDT): Improving. Not at goal. She will continue working with mental health specialist outpatient. Red flags reviewed today. Will uptitrate BuSpar to 10 mg. She will discuss gabapentin with psychiatrist. Assessment & Plan (08/02/2024 11:34 AM SEED PRODUCTION FIELD SUPERVISOR): See plan as above. Assessment & Plan (06/22/2024 1:33 PM SEED PRODUCTION FIELD SUPERVISOR): KSee discusiosn as above. WIll continue on medicatin and encourage EAP involvement. Good insight. BMI 40.0-44.9, adult 06/22/2024 Assessment & Plan (07/06/2024 8:30 AM SEED PRODUCTION FIELD SUPERVISOR): Healthy food chocies and target 150min/week aerobic exericse. Healthy food chocies. Assessment & Plan (06/22/2024 1:33 PM SEED PRODUCTION FIELD SUPERVISOR): As above. Dermatitis 05/11/2024 Assessment & Plan (05/12/2024 4:23 PM SEED PRODUCTION FIELD SUPERVISOR): Encouraged continued use of aquaphor. Ordered medrol dosepack. Placed referral to dermatology. Remove lashes and avoid makeup. Dyspepsia 05/04/2024 Assessment & Plan (07/06/2024 8:30 AM SEED PRODUCTION FIELD SUPERVISOR): NO evidence of an acute abdomen. Reviewed differential to include GERD, PUD, biliary colic, pancreatitis. Check labwokr and imaging. Reviewed red flag s/s. Reactive depression 03/25/2024 Assessment & Plan (10/21/2024 10:42 AM CDT): Currently stable. Continue current medication regimen. Encouraged follow up with therapist. Assessment & Plan (08/02/2024 11:33 AM SEED PRODUCTION FIELD SUPERVISOR): I am glad she is establishing care with psychiatry. Will continue bupropion, citalopram, BuSpar. We did review red flags of which she is well aware. Will continue to follow. Assessment & Plan (05/12/2024 4:24 PM SEED PRODUCTION FIELD SUPERVISOR): Moods are improved. Continue citalopram, BuSpar. Red flags reviewed. Assessment & Plan (03/31/2024 12:32 PM CDT): Discussed options. Will add bupropion 2 citalopram and BuSpar. Will also have therapist in our office reach out to Thi. Discussed inpatient therapy. She is semi receptive. Has thought about inpatient therapy but needs to make a plan for her children prior. We also reviewed suicide hotline. She states understanding. We reviewed red flags that would warrant presentation to ED. again she is agreeable and states understanding. Follow-up with us next week to re-evaluate. Of course sooner for any concerns. She is in agreement with plan states understanding. She is also requesting a note for work. Has been off March 30 and . We discussed returning to work April 05, 2024. She is agreeable. Will send us the paperwork that will be required for her employer. Assessment & Plan (03/25/2024 7:39 AM CDT): Continue with citalopram at 40 mg daily. Will send a new script. Continue BuSpar. Encouraged to reach out to EAP. She has follow-up scheduled in 1 month. Will monitor response at that time. We reviewed red flags. Reviewed lifestyle recommendations. She is in agreement with plan and states understanding. Encounter for weight loss counseling 03/25/2024 Assessment & Plan (03/25/2024 7:40 AM CDT): Continue with Wegovy. A1c ordered. Will message with results once received. Keep follow-up as scheduled next month. Reviewed exercise recommendations. She is in agreement with plan and states understanding. Malaise and fatigue 04/16/2023 History of section 10/31/2020 Overview (11/07/2020): - History of LTCS at term for failed IOL per patient - s/p counseling Plan - after d/w => rCS, regardless of presentation Chronic migraine without aur a without status migrainosus, not intractable 10/17/2020 Overview (10/17/2020): -5/4: Pt reporting worsening headaches in the last 2 weeks, associated with mild range BP today in clinic. Given patient's hx of preeclampsia, and IUGR with elevated dopplers, concern for possible preeclampsia developing. Recommended patient present to the [facility] for labs, serial Bps, and rule out preeclampsia. Patient amenable. Transport called. [facility] LAYOUT OPERATOR notified. Baseline labs not available. Assessment & Plan (06/22/2024 1:33 PM SEED PRODUCTION FIELD SUPERVISOR): Prn ondansetron for migraine associated n/V. Assessment & Plan (09/24/2021 11:23 AM CDT): Patient reports increased frequency, does not improve except with Tylenol Has been present daily for the past 10 days Distant history of migraines, improvement 20 since starting recently pain is mostly in the septal region where previous migraines are present Will start labetalol 200 mg b.i.d. Gestational hypertension 10/15/2020 Overview (11/07/2020): -5/4 mild range blood pressure in clinic and in [facility]. -Cr 0.65, Plts 281, AST 19/ALT 11, UPC 0.074, Uric Acid 4.7 Plan [x] Weekly CBC/CMP/UPC [x] testing [x] Delivery at 37 weeks: 11/11 @ 0930 Assessment & Plan (09/24/2021 11:23 AM CDT): Patient's history of gestational hypertension, today blood pressure is high normal Will start labetalol 200 mg b.i.d. 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 Assessment & Plan (06/22/2024 1:33 PM SEED PRODUCTION FIELD SUPERVISOR): DId not continue with wegovy. Did not like the side effect profile of medication. Assessment & Plan (09/24/2021 11:22 AM CDT): Patient's history of gastric bypass; continues to remain elevated weight; patient is currently , approximately 8 weeks GA Encouraged patient to watch caloric intake, will work with numerical control machine tool operator for management weight in No diagnosis on [place] I 02/26/2018 Resolved Problems Problem Noted Date Diagnosed Date Resolved Date Cholecystitis 07/08/2024 08/17/2024 Assessment & Plan (07/08/2024 10:17 AM SEED PRODUCTION FIELD SUPERVISOR): Given the symptomatic nature and findings on recent imaging we will set the patient up for cholecystectomy. Postoperative lifting restrictions and time needed off work have been discussed. We have discussed issues such as post cholecystectomy diarrhea. All questions have been answered. Until surgery we have recommended doing a lower fat diet. She was in understanding of the plan. Preadmission testing will be sent in. Consent to be obtained. All questions answered. Essential hypertension 04/17/201810/31 Immunizations Immunization Administration Dates Next Due DTP / HiB 1991,1991,1991 DTaP 03/19/1995,08/11/1992 Hep B, Adolescent or Pediatric 07/22/2001,2000,01/22/2001 HiB 05/17/1992,1991 Influenza, Unspecified 09/29/2024(Deferr ed: Patient Refused),05/04/2024(Deferred: Patient Refused),03/31/2024(Deferred: Other),03/25/2024(Deferred: Patient Refused),06/16/2023(Deferred: Patient Refused),04/16/2023(Deferred: Patient Refused),03/16/2023(Deferred: Patient Refused),03/16/2023(Deferred: Patient Refused),06/16/2022(Deferred: Patient Refused),03/16/2022(Deferred: Patient Refused),03/16/2022(Deferred: Patient Refused),08/06/2021(Deferred: Patient Refused),06/16/2020(Deferred: Patient Refused) MMR 11/14/2020(Deferred: Contraindication - rubella immune),03/19/1995,05/17/1992 OPV 03/19/1995,08/11/1992,1991 ,1991 Social History Tobacco Use Types Packs/Day Years Used Date Smoking Tobacco: Never Cigarettes Smokeless Tobacco: Never Tobacco Cessation:Counseling Given: Not Answered Alcohol Use Standard Drinks/Week Comments No 0 (1 standard drink = 0.6 oz pur e alcohol) AUDIT-C Answer Date Recorded Q1: How often do you have a drink containing alc ohol? Monthly or less 08/02/2024 Q2: How many drinks containi ng alcohol do you have on a typical day when you are drinking? 3 or 4 08/02/2024 Frequency of Binge Drinking Not on file 07/17 PHQ-2 Answer Date Recorded PHQ-2 Total Score (If total score is 3 or more points, staff should administer the PHQ-9) 5 01/04/2025 PHQ-9 Answer Date Recorded PHQ-9 Total Score 10 01/04/2025 Personal Safety Answer Date Recorded Have you ever been in or are you currently in a harmful physical or emotional relationship or is someone making you feel afraid or unsafe? Denies 08/09/2024 Comments Unknown Sex and Gender Information Value Date Recorded Sex Assigned at Not on file Legal Sex Female 2:38 AM SEED PRODUCTION FIELD SUPERVISOR Gender Identity Not on file Sexual Orientation Not on file Last Filed Vital Signs Vital Sign Reading Time Taken Comments Blood Pressure 98/62 12/08/2024 9:35 AM CDT Pulse 68 12/08/2024 9:35 AM CDT Temperature 36.3 C (97.4 F) 12/08/2024 9:35 AM CDT Respiratory Rate 20 12/08/2024 9:35 AM CDT Oxygen Saturation 99% 12/08/2024 9:35 AM CDT Inhaled Oxygen Concentration - - Weight 103.9 kg (229 lb) 01/04/2025 4:02 PM CDT Height 167.6 cm (5' 5.98) 01/04/2025 4:02 PM CD T Body Mass Index 36.98 01/04/2025 4:02 PM CDT Plan of Treatment Not on file Procedures Procedure Name Priority Date/Time Associated Diagnosis Comments HEPATITIS C ANTIBODY Routine 05/30/2020 from Last 3 Months or Most Recently Relevant to Health Maintenance Results * Hepatitis C antibody (05/30/2020) SCRIBED HCV ab neg Blood specimen (specimen) us Cody Chambers MD LAB MICROBIOLOGY - GENERAL ORDERABLES Final Result from Last 3 Months or Most Recently Relevant to Health Maintenance Insurance [facility] IDPA Advance Directives For more information, please contact: [phone] * Full Code (Latest Code Status on File) Date Activated Date Inactivated Comments 11/11/2020 12:10 PM 11/14/2020 7:55 PM * Full Code Date Activated Date Inactivated Comments 11/11/2020 7:56 AM 11/11/2020 12:10 PM Full CPR in case of cardiopulmonary arrest * Full Code Date Activated Date Inactivated Comments 06/02/2018 12:13 PM 06/04/2018 3:43 PM Care Teams Buffing Machine Operator Relationship Specialty Start Date End Date Aaron Bermudez MD [address] [place] [address] PCP - General Family Medicine 04/29/23 Fransico Torres NP [address] [phone] [place] [address] Nurse Practitioner Surgery 01/02/18
--- OUTSIDE RECORDS SUMMARY | 2025-01-06 15:09 | XMS_ITS | Clinical Summary ---
Author Organization [facility] Address [address] [place] [address] Phone Care Team Providers Care Casework Manager Name Role Phone Provider, None Primary Care Provider Unavailabl e Allergies No known active allergies Medications No known medications Active Problems Problem Noted Date Diagnosed Date Morbid obesity 07/15/2017 BMI 50.0-59.9, adult 07/15/2017 Family History Medical History Relation Name Comments Hypertension Father Osteoarthritis Father Asthma Mother Diabetes Mother Hypertension Mother Relation Name Status Comments Father Alive Mother Alive Social History Tobacco Use Types Packs/Day Years Used Date Smoking Tobacco: Never Smokeless Tobacco: Never Tobacco Cessation:Counseling Given: Yes Alcohol Use Standard Drinks/Week Comments Yes 1 (1 standard drink = 0.6 oz pur e alcohol) Sexually Active Control Partners Comments Yes Comments No Sex and Gender Information Value Date Recorded Sex Assigned at Not on file Legal Sex Female 11:05 PM CDT Gender Identity Not on file Sexual Orientation Not on file Last Filed Vital Signs Vital Sign Reading Time Taken Comments Blood Pressure 118/82 07/15/2017 2:10 PM MOLD FILLING OPERATOR Pulse 90 07/15/2017 2:10 PM MOLD FILLING OPERATOR Temperature 36.8 C (98.2 F) 07/15/2017 2:10 PM MOLD FILLING OPERATOR Respiratory Rate 18 07/15/2017 2:10 PM MOLD FILLING OPERATOR Oxygen Saturation 98% 07/15/2017 2:10 PM MOLD FILLING OPERATOR Inhaled Oxygen Concentration - - Weight 156 kg (344 lb) 07/15/2017 2:10 PM MOLD FILLING OPERATOR Height 167.6 cm (5' 6) 07/15/2017 2:10 PM MOLD FILLING OPERATOR Body Mass Index 55.52 07/15/2017 2:10 PM MOLD FILLING OPERATOR Plan of Treatment Health Maintenance Due Date Last Done Comments Hepatitis C Virus (HCV) Screening 1991 TdaP Immunization 1991 Human Papillomavirus (HPV) Immunization (1 - 3-dose series) 2006 Hepatitis B Immunization (1 of 3 - 19+ 3-dose series) 2010 Pap Smear 01/28/2012 Cervical Cancer Screening (CCS) 2021 HPV/Cotest 2021 SARS-COV-2 Immunization ( - 2023- season) 2024 Influenza Immunization (#1) 2025 Respiratory Syncytial Virus (RSV) Immunization (Adult) (1 - 1-dose 75+ series) 2066 Meningococcal Immunization (ACWY) Aged Out No longer eligible based on patient's age to complete this topic Pneumococcal Immunization Combined Aged Out No longer eligible based on patient's age to complete this topic Rotavirus Immunization Aged Out No lo nger eligible based on patient's age to complete this topic Care Teams Casework Manager Relationship Specialty Start Date End Date Provider, None [place] PCP - General 11/30/20
--- OUTSIDE RECORDS SUMMARY | 2025-01-06 15:09 | XMS_ITS | Clinical Summary ---
Author Organization [facility] Address [address] [place] [address] Care Team Providers Care Managing Member Name Role Phone Unavailable Primary Care Provider Unavailabl e Source Comments [facility],non-owned Affiliates and Associated Physician Practices is amultiple site organization consisting of ambulatory clinics and hospital sitesin [place], [place], [place] and [place]. This disclosure is being madepursuant to the Care Everywhere program and may not contain all information available regarding this patient. Last updated 18.[facility] Allergies No known active allergies Medications * Be aware that medications may not be up to date on this document. Alwaysverify current medications with the patient. Vit-Fe Fumarate-FA ( VITAMIN) 28-0.8 MG tablet Take 1 tablet by mouth once daily Active aspirin EC (ECOTRIN) 81 MG tablet Take 81 mg by mouth once daily Active Active Problems Problem Noted Date Diagnosed Date IUGR (intrauterine growth re striction) affecting care of mother 08/01/2020 Overview (09/20/2020): Early onset FGR Patient only had Seq. 1 with [facility]- see media for results. TORCH panel: Toxo IgM and IgG: negative. Rubella immune, CMV: IgM: negative, IgG: positive. HSV 1 and 2 IgM negative. HSV 1 IgG negative, HSV 2 IgG: positive. (patient aware) Transferring care to [facility] per nurse at primary OB. Abnormal finding on ultrasound Maternal morbid obesity, antepartum History of IUGR (intrauterin e growth retardation) and stillbirth, currently , third trimester Encounter for ultrasound 32 weeks gestation of Social History Tobacco Use Types Packs/Day Years Used Date Smoking Tobacco: Never Assessed Comments No Sex and Gender Information Value Date Recorded Sex Assigned at Not on file Legal Sex Female 5:43 AM SHAREPOINT CONSULTANT Gender Identity Not on file Sexual Orientation Not on file Last Filed Vital Signs Vital Sign Reading Time Taken Comments Blood Pressure 126/80 10/12/2020 1:49 PM CDT Pulse 84 10/12/2020 1:49 PM CDT Temperature - - Respiratory Rate - - Oxygen Saturation - - Inhaled Oxygen Concentration - - Weight - - Height - - Body Mass Index - - Plan of Treatment Health Maintenance Due Date Last Done Comments HIV SCREENING 2006 HEPATITIS C SCREENING 01/22/2009 DTAP/TDAP/TD VACCINES (1 - Tdap) 2010 HEPATITIS B VACCINE (1 of 3 - 19+ 3-dose series) 2010 HPV VACCINE (1 - 3-dose SCDM series) 2018 COVID-19 VACCINE (1 - 2023-2 5 season) 2024 DEPRESSION SCREENING 06/16/2024 INFLUENZA VACCINE (#1) 2025 ZOSTER VACCINE (1 of 2) 2041 HIB VACCINE Aged Out No longer eligi ble based on patient's age to complete this topic MENINGOCOCCAL (Group B) VACC INE SHARED DECISION-MAKING Aged Out No longer eligibl e based on patient's age to complete this topic MENINGOCOCCAL GROUPS A/C/Y/W VACCINE Aged Out No longer eligible b ased on patient's age to complete this topic PNEUMOCOCCAL VACCINE Aged Out No long er eligible based on patient's age to complete this topic Insurance [facility]
--- OUTSIDE RECORDS SUMMARY | 2025-01-06 15:09 | XMS_ITS | Encounter Summary ---
Author Organization [facility] Address [address] [place] [address] Care Team Providers Care Workers Compensation Claims Supervisor Name Role Phone Anuj Rutherford MD Primary Care Provider Fransico Torres NP Unavailable Braden Seay NP Primary Care Provider + Easton Coffey MD Primary Care Provider [phone] Aaron Bermudez MD Primary Care Provider [phone] Encounter Details Date Type Department Care Team (Late st Contact Info) Description 01/02/2018 Orders Only [facility] Outpatient Nutrition Counseling [address] Morbid obesity (HCC) (Primary Dx) Social History Tobacco Use Types Packs/Day Years Used Date Smoking Tobacco: Never Smokeless Tobacco: Never Comments No Sex and Gender Information Value Date Recorded Sex Assigned at Not on file Legal Sex Female 2:38 AM MANAGER PROGRESSIVE CARE Gender Identity Not on file Sexual Orientation Not on file documented as of this encounter Plan of Treatment Not on file documented as of this encounter Visit Diagnoses Diagnosis Morbid obesity (HCC)- Primary Morbid obesity documented in this encounter Additional Health Concerns Infection Onset Date Last Indicated Resolved Time COVID: Suspected 04/14/2023 04/14/2023 04/14/2023 10:46 AM CDT COVID: Suspected 09/01/2023 09/01/2023 09/01/2023 3:47 PM CDT documented as of this encounter Care Teams Workers Compensation Claims Supervisor Relationship Specialty Start Date End Date Anuj Rutherford MD [address] [facility] [address] [place] [address] PCP - General 10/01/17 02/10/18 Braden Seay, KAROLINE [address] [facility] [address] [place] [address] PCP - General Nurse Practitioner 02/11/18 08/05/21 Easton Coffey MD [address] [place] [address] PCP - General Family Medicine 08/06/21 04/28/23 Aaron Bermudez MD [address] [facility] [place] [address] PCP - General Family Medicine 04/29/23 Fransico Torres NP [phone] [place] [address] Nurse Practitioner Surgery 01/02/18 documented as of this encounter
--- OUTSIDE RECORDS SUMMARY | 2025-01-06 15:09 | XMS_ITS | Clinical Summary ---
Author Organization [facility] Address [address] [place] [address] Care Team Providers Care Case Repairer Name Role Phone Fransico Torres NP Unavailable [phone] Aaron Bermudez MD Primary Care Provider [phone] Allergies No known active allergies Medications multivit-min/iron [...] 3 (three) times a day 90 tablet 12/09/19 25 2025 Active ondansetron ODT (ZOFRAN-ODT) [...] a day for 14 days 28 capsule 08/09/192024 Discontinued(T herapy completed) Narcan 4 mg/actuation spray,non-aerosol [...] 08/02/2024 Assessment & Plan (08/02/2024 11:34 AM WATER AND FIRE TECHNICIAN): Will initiate oral and topical antibiotics. Discussed contagiousness so make sure to clean and avoid touching. She will call her children's bead forming machine set up operator as well. RTC if worsening or not [...] psychiatrist. Assessment & Plan (08/02/2024 11:34 AM WATER AND FIRE TECHNICIAN): See plan as above. Assessment & Plan (06/22/2024 1:33 PM WATER AND FIRE TECHNICIAN): KSee discusiosn as above. WIll continue on medicatin and encourage EAP involvement. Good insight. BMI 40.0-44.9, adult 06/22/2024 Assessment & Plan (07/06/2024 8:30 AM WATER AND FIRE TECHNICIAN): Healthy food chocies and target 150min/week aerobic exericse. Healthy food chocies. Assessment & Plan (06/22/2024 1:33 PM WATER AND FIRE TECHNICIAN): As above. Dermatitis 05/11/2024 Assessment & Plan (05/12/2024 4:23 PM WATER AND FIRE TECHNICIAN): Encouraged continued use of aquaphor. Ordered medrol dosepack. Placed referral to dermatology. Remove lashes and avoid makeup. Dyspepsia 05/04/2024 Assessment & Plan (07/06/2024 8:30 AM WATER AND FIRE TECHNICIAN): NO evidence of an acute abdomen. Reviewed differential to include GERD, PUD, biliary colic, pancreatitis. Check labwokr and imaging. Reviewed red flag s/s. Reactive depression 03/25/2024 Assessment & Plan (10/21/2024 10:42 AM CDT): Currently stable. Continue current medication regimen. Encouraged follow up with therapist. Assessment & Plan (08/02/2024 11:33 AM WATER AND FIRE TECHNICIAN): I am glad she is establishing care with psychiatry. Will continue bupropion, citalopram, BuSpar. We did review red flags of which she is well aware. Will continue to follow. Assessment & Plan (05/12/2024 4:24 PM WATER AND FIRE TECHNICIAN): Moods are improved. Continue citalopram, BuSpar. Red [...] Continue BuSpar. Encouraged to reach out to EA. She has follow-up scheduled in 1 month. [...] preeclampsia developing. Recommended patient present to the [facility] for labs, serial Bps, and rule out preeclampsia. Patient amenable. Transport called. [facility] SHOW DOG TRAINER notified. Baseline labs not available. Assessment & Plan (06/22/2024 1:33 PM WATER AND FIRE TECHNICIAN): Prn ondansetron for migraine associated n/V. Assessment [...] range blood pressure in clinic and in [facility]. -Cr 0.65, Plts 281, AST [...] surgery Assessment & Plan (07/06/2024 8:30 AM WATER AND FIRE TECHNICIAN): As above. Assessment & Plan (06/22/2024 1:33 PM WATER AND FIRE TECHNICIAN): DId not continue with wegovy. Did not like the side effect profile of medication. Assessment & Plan (09/24/2021 11:22 AM CDT): Patient's history of gastric bypass; continues to remain elevated weight; patient is currently , approximately 8 weeks GA Encouraged patient to watch caloric intake, will work with hoop flaring machine operator helper for management weight in No diagnosis on [place] I 02/26/2018 Resolved Problems Problem Noted Date Diagnosed Date Resolved Date Cholecystitis 07/08/2024 08/17/2024 Assessment & Plan (07/08/2024 10:17 AM WATER AND FIRE TECHNICIAN): Given the symptomatic nature and findings on [...] obtained. All questions answered. Essential hypertension 04/17/201810/31 Encounters Date Type Department Care Team Description 01/04/2025 4:00 PM CDT [facility] [address] [place] [address] Aaron Bermudez MD S/P laparoscopic cholecystectomy (Primary Dx) 01/04/2025 [facility]phone [facility] [address] [address] Aaron Bermudez MD 12/13/2024 Telephone [facility] [address] [address] Nahed Olvera NP Prior Auth (Buspirone - APPROVED) 12/08/2024 9:30 AM CDT Office Visit [facility] [address] [address] Nahed Olvera NP Hospital discharge follow-up (Primary Dx); Adjustment disorder with anxious mood; Encounter for weight loss counseling 11/30/2024 [facility]phone [facility] [address] [address] Aaron Bermudez MD TARA Questions 10/18/2024 Telephone [facility] Warm Hand Off Program [address] [place], [place] [phone] Isabel Hawk, DRYWALL INSTALLER from Last 3 Months Immunizations Immunization Administration Dates Next Due DTP / HiB 1991,1991,1991 DTaP 03/19/1995,08/11/1992 Hep B, Adolescent or Pediatric 07/22/2001,2000,01/22/2001 HiB 05/17/1992,1991 Influenza, Unspecified 09/29/2024(Deferr ed: Patient Refused),05/04/2024(Deferred: Patient Refused),03/31/2024(Deferred: Other),03/25/2024(Deferred: Patient Refused),06/16/2023(Deferred: Patient Refused),04/16/2023(Deferred: Patient Refused),03/16/2023(Deferred: Patient Refused),03/16/2023(Deferred: Patient Refused),06/16/2022(Deferred: Patient Refused),03/16/2022(Deferred: Patient Refused),03/16/2022(Deferred: Patient Refused),08/06/2021(Deferred: Patient Refused),06/16/2020(Deferred: Patient Refused) MMR 11/14/2020(Deferred: Contraindication - rubella immune),03/19/1995,05/17/1992 OPV 03/19/1995,08/11/1992,1991 ,1991 Surgical History Surgery Date Site/Laterality Comments SECTION 08/15/2015 - 09/14/2015 COLONOSCOPY SECTION 10/14/2020 - 11/13/2020 GASTRIC BYPASS 05/16/2018 - 06/15/2018 SECTION 02/26/2022 CHOLECYSTECTOMY 08/09/2024 Medical History Medical History Date Comments Morbid obesity (HCC) Hypertension Hyperlipidemia Arthritis Migraine Anxiety Depression Cholecystitis 07/08/2024 Family History Medical History Relation Name Comments Cancer Cousin Family history of malignant neoplasm - (Added by TW Conv) Depression Father Kash Kirby Hypertension Father Kash Kirby Obesity Father Kash Kirby Diabetes Maternal Grandfather Emma Rivas Heart disease Maternal Grandmother Marge Rivas Depression Mother Korey Caputo Diabetes Mother Korey Caputo Family histor y of diabetes mellitus - (Added by TW Conv) Hypertension Mother Korey Caputo Diabetes Other Family history of diabetes mellitus - Relation: Grandparent (Added by TW Conv) Asthma Paternal Grandmother Allyssa Lehman Stroke Paternal Grandmother Allyssa Lehman Relation Name Status Comments Cousin Father Kash Kirby Maternal Grandfather Emma Rivas Maternal Grandmother Marge Rivas Mother Korey Caputo Other Paternal Grandmother Allyssa Lehman Social History Tobacco Use Types Packs/Day Years [...] on file Legal Sex Female 2:38 AM WATER AND FIRE TECHNICIAN Gender Identity Not on file Sexual Orientation Not on file Obstetrics History Para Term AB IAB SAB Ectopic Multiple Livin g Live Births 3 2 2 0 2 2 Date Outcome GA Total Labor Labor/2nd/3rd Weight Sex Type Anes PTL Shannan A1 A5 Name Clin 6 Term 37w 0d 2.325 kg (5 lb 2 oz) M CS-LT ranv Livin g Complications:Other (Comment ),Breech delivery 2020 Term 37w 0d 0h 01m 0h 01m 2.46 kg (5 lb 6.8 oz) M CS-LT ranv Combin ed Spinal /Epidu ral N Livin g 8 9 ALEXA RODRIGUES, Susana Parker MD Complications:None Delivery Location:[facility] Main C ampus ([facility] L AND D PROCEDURE) Last Filed Vital Signs Vital Sign Reading [...] 01/04/2025 4:02 PM CDT Plan of Treatment Health Maintenance Due Date Last Done Comments Cervical Cancer Screening 1991 DTaP/Tdap/Td Vaccine (6 - Tdap) 2002 03/19/1995, 08/11/1992, 1991, Additional history exists Varicella Vaccines (1 of 2 - 13+ 2-dose series) 01/28/2004 Regular Well Visit/Exam 18-64 2009 Influenza Vaccine (#1) 2025 Depression Screening 01/04/2026 01/04/2025, 01/04/2025, 08/02/2024, Additional history exists Hepatitis B Screening Completed 07/22/2001 , 02/25/2001, 01/22/2001 Hepatitis C Screening Completed 05/30/2020 HPV Vaccines Aged Out No longer eligi ble based on patient's age to complete this topic Pneumococcal vaccine <65 Aged Out No longer eligible based on patient's age to complete this topic Procedures Procedure Name Priority Date/Time Associated Diagnosis Comments HEPATITIS C ANTIBODY Routine 05/30/2020 from Last 3 Months or Most Recently Relevant to Health Maintenance Results * Hepatitis C antibody (05/30/2020) SCRIBED HCV ab neg Blood specimen (specimen) Cody Chambers MD LAB MICROBIOLOGY - GENERAL ORDERABLES Final Result from Last 3 Months or Most Recently Relevant to Health Maintenance Insurance [facility] IDPA Advance Directives For more information, please contact: [phone] * Full Code (Latest Code Status on File) Date Activated Date Inactivated Comments 11/11/2020 12:10 PM 11/14/2020 7:55 PM * Full Code Date Activated Date Inactivated Comments 11/11/2020 7:56 AM 11/11/2020 12:10 PM Full CPR in case of cardiopulmonary arrest * Full Code Date Activated Date Inactivated Comments 06/02/2018 12:13 PM 06/04/2018 3:43 PM Care Teams Case Repairer Relationship Specialty Start Date End Date Aaron Bermudez MD [address] [place] [address] PCP - General Family Medicine 04/29/23 Fransico Torres NP [phone] [place] [address] Nurse Practitioner Surgery 01/02/18
--- OUTSIDE RECORDS SUMMARY | 2025-01-06 15:09 | XMS_ITS | Data Portability ---
Author Organization [facility] Address [address] [place] [address] Care Team Providers Care Computing Tutor Name Role Phone ESCOBEDOBOBBY Primary Care Provider Assessment Encounter Date Assessment Date Assessment LastModified by Organization Details LastModified Time 06/06/2023 06/06/2023 Annual gynecological exam performed. Patient will come back in a year unless there are new symptoms. [email or web address] Not available 06/06/2023 10:50:20 05/10/2024 05/10/2024 Annual gynecological exam performed. Patient will come back in a year unless there are new symptoms. [email or web address] Not available 04/21/2024 14:47:56 Plan of Treatment Reminders Order Date Submit Date Provider Last Modified By Organization Details Last Modified Time Details Appointments None recorded. Lab HBsAg (hepatitis B surface Ag), serum 2023 [facility] (Lab), [address] , [place], [address], 13:36:07 CT + NG + TV, RNA, unspecified specimen 2023 [facility] (Lab), [address] [place], [address], 13:25:35 Referral None recorded. Procedures None recorded. Surgeries None recorded. Imaging None recorded. Medication Orders valacyclovi r 500 mg tablet 2023 024 [facility] [address] [place], [address], 4 16:08:39 Loestrin Fe 1.5/30 (28-Day) 1.5 mg-30 mcg (21)/75 mg (7) tablet 2023 024 [facility] [address] [place], [address], 4 16:08:40 Loestrin Fe 1.5/30 (28-Day) 1.5 mg-30 mcg (21)/75 mg (7) tablet [address] [facility], [address] [place] [address], [address], 3 10:53:46 Lexapro 10 mg tablet [address] [facility], [address] [place] [address], [address], 3 10:53:07 Analpram-HC 2.5 %-1 % rectal cream [address], [address] [place] [address], [address], 3 10:53:37 hydrocodone 5 mg-acetamin ophen 325 mg tablet [address], [address] [place] [address], [address], 3 10:53:21 Patient TargetsNo targets recorded. Patient InstructionsNo instructions recorded. Reason for Referral None Reported. Results Created Date Observation Date Name Description Value Unit Range Abnormal Flag Note LastModifiedBy Organization Detail LastModifiedTime 02/12/20 22 02/11/2022 CULTU RE: GROUP B STREP SCREE N, REFLE X SUSCE PTIBI LITY result report SEE RESULT S BELOW Test: Cultu re: Group B Strep , Refle x Susce ptibi lity ([facility]/ [facility] ) Speci men Sourc e: Vagin a/Rec can Speci men Type: Vagin al/Re ctal Speci men Date: 2021 1:09 PM Resul t Date: 022 3:44 PM Resul t Statu s: Final resul t Abnor mal: No Resul ting Lab: [facility] [address] [facility] [address] Tel: [phone] CULTU RE ----- ----- ----- --- No Group B strep isola amish at 2 days (zeny ctive broth enhan cemen t) Not Available [facility] [address] [place], [address], 02/14/2022 16:48:15 05/10/20 24 05/10/2024 CT/GC AND TRICH OMONA S VAGIN RUSSELL (RRNA ), SWAB chlamydia trachomatis, PCR Negati ve negati ve Not Available [facility] (Lab) [address] [place], [address], 05/11/2024 13:25:35 05/10/20 24 05/10/2024 CT/GC AND TRICH OMONA S VAGIN RUSSELL (RRNA ), SWAB neisseria gonorrhoeae, PCR Negati ve negati ve Not Available [facility] (Lab) [address] [place], [address], 05/11/2024 13:25:35 05/10/20 24 05/10/2024 CT/GC AND TRICH OMONA S VAGIN RUSSELL (RRNA ), SWAB trichomonas vaginalis ribosomal RNA (rrna) Negati ve negati ve Not Available [facility] (Lab) [address] [place], [address], 05/11/2024 13:25:35 05/10/20 24 05/10/2024 HBSAG /HCV/ HIV/R NH HIV antigen/anti body Nonrea ctive nonrea ctive HIV-1 antig en and HIV-1 /HIV- 2 antib odies were not detec amish. No labor atory evide nce of HIV infec tion. Not Available [facility] (Lab) [address] [facility], [place], [address], 05/11/2024 13:36:07 05/10/20 24 05/10/2024 HBSAG /HCV/ HIV/R NH hepatitis B surface antigen Non-re active non-re active This assay was perfo rmed using [employer] n reage nts and test kits. Value s obtai imer with other assay metho ds or kits canno t be used inter solitario eably . Not Available [facility] (Lab) [address] [facility], [place], [address], 05/11/2024 13:36:07 05/10/20 24 05/10/2024 HBSAG /HCV/ HIV/R NH hepatitis C antibody Non-re active non-re active Antib odies to HCV Not Detec amish, does not exclu de the possi bilit y of expos ure to HCV. Not Available [facility] (Lab) [address] [facility], [place], [address], 05/11/2024 13:36:07 05/10/20 24 05/10/2024 HBSAG /HCV/ HIV/R NH RPR screen Nonrea ctive nonrea ctive Not Available [facility] (Lab) [address] [facility], [place], [address], 05/11/2024 13:36:07 02/05/20 22 02/04/2022 non-s tress test No observ ation record ed. [email or web address] [place] [address], [place], [address], 02/04/2022 17:06:46 02/05/20 22 02/04/2022 US, obste tric, follo w-up No observ ation record ed. [email or web address] [place] [address], [place], [address], 02/04/2022 18:18:48 02/05/20 22 02/04/2022 US, obste tric, follo w-up No observ ation record ed. [email or web address] [address], [place], [address], 02/07/2022 16:13:32 02/15/20 22 02/14/2022 non-s tress test No observ ation record ed. [email or web address] [place] [address], [place], [address], 02/14/2022 11:01:04 02/21/20 22 02/20/2022 non-s tress test No observ ation record ed. [email or web address] [place] [address], [place], [address], 02/20/2022 17:18:34 02/21/20 22 02/20/2022 US, obste tric, bioph ysica l profi le No observ ation record ed. [email or web address] [place] [address], [place], [address], 02/20/2022 18:02:38 02/21/20 22 02/20/2022 US, obste tric, bioph ysica l profi le No observ ation record ed. [email or web address] [address], [place], [address], 02/20/2022 21:48:06 Result Notes None recorded. Problems Name Problem SNOMED Code Status Onset Date Resolution Date Notes Provider Name and Address Organization Details Recorded Time Past pregnanc y history of section [id number] Completed Repeat LTCS Nahed hough, [facility] 15:22:38 Past pregnanc y history of gestatio nal hyperten alonzo [id number] Completed Nahed hough, [facility] 15:22:38 growth restrict ion [id number] Completed SGA - MFM 09/13 10am u/s [facility] & [facility] 10/02 11:15am u/s only & echo 09/22 11:15am Nahed hayl null, [facility] 1 15:22:38 Headache 38210398 Completed Fioricet Txed- Neuro appt Dr Caballero 01/04/22 1:30 - gave no help Nahed hayl null, [facility] 2 14:37:56 Pre-ecla mpsia 041327382 Completed Possibly just PIH, delivered at 37 week X 2 scheduled Nahed hayl null, [facility] 2 14:37:56 Deliveri es by [id number] Completed X2, repeat Nahed hayl null, [facility] 2 14:37:56 Chronic hyperten alonzo in obstetri c context [id number] Completed dc'ed labetalol -ASA & testing at 32 wks - stable Nahed hayl null, [facility] 2 14:37:56 Obesity 629477668 Completed Nahed hayl null, [facility] 2 14:37:56 RhD negative 967662455 Completed 12/05/21 given Nahed Lopez ehl null, [facility] 2 14:37:56 Anemia 026076709 Completed s/p Iron infusion Nahed hayl null, [facility] 2 14:37:56 Hypoglyc emia 980672208 Completed regular snacks Nahed Segoviawade satnaml null, [facility] 2 14:37:56 Pregnanc y 65360400 Completed 201911/27/2020 Nahed Lopez ehl null, [facility] 2 14:38:04 Herpes simplex 58439068 Active 2020 Type 2, Found in TORCH panel done by [facility] 1 Nahed Lopez ehl null, [facility] 2 14:37:56 Herpes simplex 37238152 Completed 2020 Type 2, Found in TORCH panel done by [facility] 1 Nahed hayl null, [facility] 2 14:37:56 Pregnanc y 52015432 Completed 202103/29/2022 Nahed hayl null, [facility] 2 14:38:04 Problem Notes None recorded. Procedures Surgical History Date Name Laterality Status Provider Name and Address Organization Details Recorded Time 2 SECTION (SURG) completed Liana Lin [facility] 02/26/2022 10:56:20 2 Date of Last Pap Smear completed [facility] 12/27/2021 15:04:02 1 section completed Yani Barraza [facility] 11/15/2021 16:51:08 8 Gastric bypass for obesity completed Maria Del Carmen Marin [facility] 05/30/2020 15:09:03 6 [facility]/15[facility]2021 16:50:57 Imaging Results None recorded. Procedure Notes None recorded. Medical Equipment None Reported. Allergies No known drug allergies Medications Name Sig Start Date Stop Date Status Note LastModified by Organization Details LastModified Time fluoxetine 40 mg capsule 06/06 completed Not Available Not Available Not Available amoxicillin 500 mg capsule TAKE 1 CAPSULE BY MOUTH EVERY 8 HOURS FOR 10 DAYS 12/28 completed Not Available Not Available Not Available venlafaxine 75 mg tablet TAKE 1/2 (ONE-HALF ) TABLET BY MOUTH TWICE DAILY FOR 14 DAYS THEN FILL RX FOR 1 TABLET TWICE DAILY 06/06 completed Not Available Not Available Not Available labetalol 200 mg tablet 05/10 completed Not Available Not Available Not Available clindamycin HCl 300 mg capsule 08/14 completed Not Available Not Available Not Available citalopram 40 mg tablet TAKE 1 TABLET BY MOUTH ONCE DAILY active Not Available Not Available No t Available hydrocortis one-pramoxi ne 2.5 %-1 % rectal cream INSERT 1 CREAM RECTALLY THREE TIMES DAILY 06/06 completed Not Available Not Available Not Available fluconazole 150 mg tablet TAKE ONE TABLET BY MOUTH A ONE-TIME DOSE MAY REPEAT IN 7 DAYS IF SYMPTOMS PERSIST 06/06 completed Not Available Not Available Not Available hydrocodone 5 mg-acetamin ophen 325 mg tablet Take 1 tablet every 6 hours by oral route. 06/06 completed Not Available Not Available Not Available ondansetron HCl 4 mg tablet TAKE 1 TABLET BY MOUTH EVERY 8 HOURS NEEDED FOR NAUSEA FOR VOMITING active Not Available Not Available No t Available nifedipine ER 30 mg tablet,exte nded release 08/14 completed Not Available Not Available Not Available valacyclovi r 500 mg tablet Take 1 tablet every day by oral route. active Not Available Not Available No t Available acetaminoph en 500 mg tablet 08/14 completed Not Available Not Available Not Available butalbital- acetaminoph en-caffeine 50 mg-325 mg-40 mg tablet TAKE 1-2 TABLETS BY MOUTH EVERY 4-6 HOURS NEEDED FOR HEADACHE NOT TO EXCEED 6 TABS IN 24 HORS 12/28 completed Not Available Not Available Not Available temazepam 7.5 mg capsule TAKE 1 CAPSULE BY MOUTH NIGHTLY NEEDED FOR SLEEP 05/10 completed Not Available Not Available Not Available ondansetron 8 mg disintegrat ing tablet 05/10 completed Not Available Not Available Not Available amoxicillin 875 mg tablet TAKE 1 TABLET BY MOUTH TWICE DAILY 05/10 completed Not Available Not Available Not Available citalopram 20 mg tablet TAKE 1 TABLET BY MOUTH ONCE DAILY 05/10 completed Not Available Not Available Not Available lorazepam 0.5 mg tablet TAKE 1 TABLET BY MOUTH ONCE DAILY NEEDED 06/06 completed Not Available Not Available Not Available OneTouch Ultra Test strips USE TO CHECK GLUCOSE 4 TIMES DAILY (PATIENT TO CHECK BLOOD SUGAR FAST AND 1 HOUR POST MEAL) 06/06 completed Not Available Not Available Not Available benzonatate 100 mg capsule TAKE 1 CAPSULE BY MOUTH THREE TIMES DAILY NEEDED FOR COUGH 05/10 completed Not Available Not Available Not Available hydrocodone 7.5 mg-acetamin ophen 325 mg tablet 08/14 completed Not Available Not Available Not Available pantoprazol e 40 mg tablet,kirby yed release TAKE 1 TABLET BY MOUTH ONCE DAILY active Not Available Not Available No t Available buspirone 10 mg tablet TAKE 1 TABLET BY MOUTH THREE TIMES DAILY active Not Available Not Available No t Available butalbital 50 mg-acetamin ophen 325 mg-caffeine 40 mg-codeine 30 mg cap Take by oral route for 5 days. 12/28 completed Not Available Not Available Not Available prednisone 50 mg tablet TAKE 1 TABLET BY MOUTH ONCE DAILY 06/06 completed Not Available Not Available Not Available gabapentin 100 mg capsule 08/14 completed Not Available Not Available Not Available lorazepam 1 mg tablet TAKE 1 TABLET BY MOUTH ONCE DAILY NEEDED 06/06 completed Not Available Not Available Not Available methylpredn isolone 4 mg tablets in a dose pack active Not Available Not Available Not Available albuterol sulfate HFA 90 mcg/actuati on aerosol inhaler INHALE 2 PUFFS BY MOUTH 4 TIMES DAILY NEEDED FOR SHORTNESS OF BREATH OR WHEEZING 06/06 completed Not Available Not Available Not Available norethindro ne (contracept kevin) 0.35 mg tablet 08/14 completed Not Available Not Available Not Available ondansetron 4 mg disintegrat ing tablet DISSOLVE 1 TABLET IN MOUTH EVERY 8 HOURS NEEDED FOR NAUSEA AND VOMITING 12/28 completed Not Available Not Available Not Available fluoxetine 20 mg capsule 06/06 completed Not Available Not Available Not Available fluticasone propionate 50 mcg/actuati on nasal spray,suspe nsion USE 1 SPRAY(S) IN EACH NOSTRIL TWICE DAILY FOR 30 DAYS 05/10 completed Not Available Not Available Not Available loratadine 10 mg tablet TAKE 1 TABLET BY MOUTH ONCE DAILY 05/10 completed Not Available Not Available Not Available naproxen 500 mg tablet TAKE 1 TABLET BY MOUTH TWICE DAILY NEEDED FOR PAIN 06/06 completed Not Available Not Available Not Available metoclopram zev 10 mg tablet Take 1 tablet 4 times a day by oral route. 06/06 completed Not Available Not Available Not Available amoxicillin 875 mg-potassiu m clavulanate 125 mg tablet TAKE 1 TABLET BY MOUTH EVERY 12 HOURS WITH FOOD, TAKE PROBIOTIC OR ACTIVIA YOGURT WHILE ON THIS MEDICATIO N 05/10 completed Not Available Not Available Not Available buspirone 15 mg tablet active Not Available Not Available Not Available oxycodone 5 mg tablet 08/14 completed Not Available Not Available Not Available escitalopra m 10 mg tablet Take 1 tablet every day by oral route. 06/06 completed Not Available Not Available Not Available bupropion HCl XL 150 mg 24 hr tablet, extended release TAKE 1 TABLET BY MOUTH ONCE DAILY IN THE MORNING 05/10 completed Not Available Not Available Not Available nitrofurant oin monohydrate /macrocryst als 100 mg capsule TAKE 1 CAPSULE BY MOUTH TWICE DAILY FOR 7 DAYS 09/12 completed Not Available Not Available Not Available Tylenol 05/10 completed Not Available Not Available Not Available 09/12 completed Not Available Not Available Not Available Daily 05/10 completed Not Available Not Available Not Available Aerochamber Plus Flow-Vu USE DIRECTED WITH INHALER 05/10 completed Not Available Not Available Not Available BROACHING MACHINE OPERATOR-PNV-DHA 28 mg iron-1 mg-200 mg capsule 06/06 completed Not Available Not Available Not Available Fioricet 50 mg-300 mg-40 mg capsule 05/10 completed Not Available Not Available Not Available butalbital 50 mg-acetamin ophen 300 mg-caffeine 40 mg-codeine 30 mg cap 05/10 completed Not Available Not Available Not Available Adri Fe 1.5/30 (28) 1.5 mg-30 mcg (21)/75 mg (7) tablet Take 1 tablet every day by oral route. active Not Available Not Available No t Available M- Plus 27 mg iron-1 mg tablet 05/10 completed Not Available Not Available Not Available OneTouch Ultra2 Meter USE TO CHECK GLUCOSE 4 TIMES DAILY (PT TO CHECK BLOOD SUGAR FASTING AND 1 HOUR POST MEALS) 06/06 completed Not Available Not Available Not Available OneTouch Delica Plus Lancet 33 gauge USE TO CHECK GLUCOSE 4 TIMES DAILY (PATIENT TO CHECK BLOOD SUGAR FAST AND 1 HOUR POST MEAL) 06/06 completed Not Available Not Available Not Available Wegovy 0.25 mg/0.5 mL subcutaneou s pen injector INJECT 0.5MG SUBCUTANE OUSLY ONCE A WEEK 05/10 completed Not Available Not Available Not Available Wegovy 0.5 mg/0.5 mL subcutaneou s pen injector INJECT 0.5MG SUBCUTANE OUSLY ONCE EVERY 7 DAYS active Not Available Not Available No t Available Vitals Date Recorded Body weight Provider Name an d Address Organization Details Last Updated DateTime 03/06/2022 110722.14524 g Nahed Carrion [facility] 03/29/2022 14:38:00 Date Recorded Body height Body mass index (BMI) Systolic And Diastolic Systolic And Diastolic Provider Name and Address Organization Details Last Updated DateTime 03/06/2022 165.1 cm 40.1 kg/m2 136/95 mm[Hg] 143/89 mm[Hg] [facility] 03/06/2022 16:25:18 Date Recorded Body weight Provider Name an d Address Organization Details Last Updated DateTime 03/13/2022 201410.13971 g Nahed Carrion [facility] 03/29/2022 14:38:00 Date Recorded Body height Body mass index (BMI) Systolic And Diastolic Provider Name and Address Organization Details Last Updated DateTime 03/13/2022 165.1 cm 39.3 kg/m2 134/81 mm[Hg] [facility] 03/13/2022 15:35:21 Date Recorded Body height Body mass index (BMI) Body weight Systolic And Diastolic Provider Name and Address Organization Details Last Updated DateTime 04/09/2022 165.1 cm 37.9 kg/m2 863538.06 g 135/79 mm[Hg] Maria Del Carmen Marin [facility] 04/09/2022 10:36:50 Date Recorded Body height Body mass index (BMI) Body weight Systolic And Diastolic Provider Name and Address Organization Details Last Updated DateTime 05/10/2024 165.1 cm 42.4 kg/m2 049980.05 g 151/97 mm[Hg] Haydee Giron [facility] 05/10/2024 15:48:55 Date Recorded Body weight Systolic And Diastolic Provider Name and Address Organization Details Last Updated DateTime 06/06/2023 030848.39 g 136/82 mm[Hg] Roselyn Wilcox [facility] 06/06/2023 10:52:03 Social History Question Answer Notes LastModified by Organizat ion Details LastModified Time Tobacco Smoking Status Never Smoker [facility] 06/06/2023 10:46:13 Do You Have An Advance Directive? No Information n ot available 08/22/2020 Are You Blind Or Do You Have Difficulty Seeing? No Information n ot available 08/22/2020 What Is Your Level Of Caffeine Consumption? None Information not available 08/22/2020 How Much Tobacco Do You Chew? None Information not available 08/22/2020 In The 14 Days Before Symptom Onset, Have You Had Close Contact With A Laboratory-confirm ed COVID-19 While That Case Was Ill? No Information n ot available 08/22/2020 In The 14 Days Before Symptom Onset, Have You Had Close Contact With A Person Who Is Under Investigation For COVID-19 While That Person Was Ill? No Information not available 08/22/2020 Have You Been To An Area Known To Be High Risk For COVID-19? No Information not available 08/22/2020 Are You Deaf Or Do You Have Serious Difficulty Hearing? No Information not available 08/22/2020 What Type Of Diet Are You Following? REGULAR Information n ot available 08/22/2020 What Is The Highest Grade Or Level Of School You Have Completed Or The Highest Degree You Have Received? [id number] Information not available 08/22/2020 Are There Any Guns Present In Your Home? No Information not available 08/22/2020 What Was The Date Of Your Most Recent Tobacco Screening? 05/10/2020 [email or web address] Information not available 06/06/2023 Do You Use Protection During Sex? Usually Information not available 08/22/2020 Do You Use Your Seat Belt Or Car Seat Routinely? Yes Information not available 08/22/2020 Do You Have Smoke And Carbon Monoxide Detectors In Your Home? Yes Information not available 08/22/2020 How Much Tobacco Do You Smoke? No Information not available 05/10/2020 Do You Use Sunscreen Routinely? No Information not available 08/22/2020 Have You Used IV Drugs? No Information not available 08/22/2020 Do You Have Difficulty Walking Or Climbing Stairs? No [email or web address] Information not available 06/06/2023 Sex: Unknown Functional Status Question Answer Note LastModified by Organizat ion Details LastModified Time Do you use any illicit or recreational drugs? No Information not available 08/22/2020 What is your level of alcohol consumption? None Information not available 08/22/2020 Do you or have you ever used smokeless tobacco? Never used smokeless tobacco [email or web address] Information not available 06/06/2023 Are you able to walk? YESWOREST Information not available 08/22/2020 Are you able to care for yourself? 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 No Information not available 06/06/2023 Do you or have you ever used e-cigarettes or vape? Never used electronic cigarettes [email or web address] Information not available 06/06/2023 What is your exercise level? Moderate Information not available 08/22/2020 Mental Status Question Answer Note LastModified by Organization D etails LastModified Time Do you feel stressed (tense, restless, nervous, or anxious, or unable to sleep at night)? [id number] [email or web address] Information not available 08/22/2020 Family History Relationship Description Onset Age of this Age Resolved Age Notes LastModified by Organization Details LastModified Time Father No current problems or disability Not available 05/10 17:04:53 Mother No current problems or disability Not available 05/10 17:04:53 Medical History Condition Response Allergies (Food, seasonal, environmental ) N Other N Breast Cancer N Drug/Latex Allergies/Reactions N Blood Transfusion N Dermatologic Disorders N Lung Disease N Defects or Inherited Disease N Breast Problem N Gestational Diabetes N Hematologic disorders N Anesthesia Complications N History of STI Y Deep Vein Thrombosis N Polycystic ovary syndrome N Anxiety Disorder N Autoimmune disease N Arthritis N Infertility N Polyps N Acid Reflux (GERD) N History of abnormal pap N Cancer N Stroke N Varicosities N Neurologic/Epilepsy N Endometriosis N High Cholesterol N Headaches Y Fibromyalgia N Kidney Disease N Heart Problems N Kidney or Bladder Problems N Thyroid Problems N GI Problems Y Eating Disorder N Anemia N Art (IVF or FET) N Psychiatric Illness N Ovarian Cancer N Diabetes N Pulmonary (TB, Asthma) N Hepatitis/Liver Disease N Eczema N Urinary Tract Infection N Abuse/Domestic Violence N Asthma N Trauma/Violence N Depression/ depression N Heart Disease N Pre-Eclampsia N Hypertension N Osteoporosis N Thrombophilias N Gynecological History Statement/Question Response Flow Light Date of LMP 04/27/2024 On BCP's at Conception? N N Was last menstrual period normal Y STIs/STDs Y HPV Vaccine N Duration of Flow (days) 3 Current Control Method Age at First Child 25 Are cycles usually normal Y Frequency of Cycle (Q days) 29 Sexually Active? Y BCPs Menses Monthly Y Age of first menstrual cycle 14 Date of Last Pap Smear 10/12/2021 Sexual Problems? N Desired Control Method Condoms LMP Definite N Obstetrics History GPAL:G 3 P 3 0 0 3 Type Value Full Term 3 Living 3 Total 3 Past Encounters Encounter ID Performer Location Encounter Start Date Encounter Closed Date Diagnosis/Indication Diagnosis SNOMED-CT Code Diagnosis ICD10 Code Diagnosis Note [id number] Oswaldo Parsons MD [place] [address] [address] 05/08/2020 16:38:30 05/09/2020 12:14:28 [id number] Olena Arguello [facility] [address] [address] 05/10/2020 16:45:38 05/14/2020 12:40:30 test positive [id number] Z32.01 Risk factors addressed: Tobacco Cessation, Safe Sexual Practices, environmen purvi, work hazards, travel restrictio ns, seat belt use.Eat a health well balanced diet, avoid alcohol, tobacco, and street drugs. Engage in daily low impact exercise, avoid temperatur e extremes, and cat, rodent, and bird feces.Avoi d travel to areas where zika virus is a concern.Fi rst look offered to patient. along with all available genetic testing/sc reening. First look accepted by patient and will be scheduled. Sequential Screen handout given and discussed with patient.Ch ildbirth classes recommende d.New OB sheet given. History of hypertensi on with previous . Will take baby aspirin daily. If previous , counseling .Pt verbalizes that she understand s the importance of above instructio ns.All questions were answered. Patient reminded to have annual well woman examinatio n and address [facility] . [id number] Oswaldo Parsons MD [place] [address],[place] [address] 05/30/2020 13:56:02 05/30/2020 14:35:06 screening [id number] Z36.82 Z36.89 Z36.0 [id number] Oswaldo Parsons MD [place] [address],[place] [address] 05/30/2020 13:57:39 05/30/2020 15:51:15 Routine care 115617433 Z34.90 [id number] Oswaldo Parsons MD [place] [address],[place] [address] 07/25/2020 16:43:34 07/26/2020 22:16:52 screening for malformation 231391098 Z36.3 [id number] Oswaldo Parsons MD [place] [address],[place] [address] 07/25/2020 16:44:01 07/26/2020 22:17:12 Routine care [id number] Z34.90 [id number] Oswaldo Parsons MD [place] [address],[place] [address] 08/22/2020 15:27:21 08/22/2020 16:11:23 Routine care [id number] Z34.90 [id number] Olena Arguello [facility] [address],[place] [address] 09/12/2020 10:12:22 09/12/2020 10:39:42 Routine care 591171292 Z34.93 [id number] Olena Arguello [place] [address],[place] [address] 08/14/2021 12:04:53 08/14/2021 13:07:01 test positive 967888437 Z32.01 Risk factors addressed: Tobacco Cessation, Safe Sexual Practices, environmen purvi, work hazards, travel restrictio ns, seat belt use.Eat a health well balanced diet, avoid alcohol, tobacco, and street drugs.Enga ge in daily low impact exercise, avoid temperatur e extremes, and cat, rodent, and bird feces.Avoi d travel to areas where zika virus is a concern.Of fered cf/sma/nip t. Desires testing. Handouts given and discussed with patient.Ch ildbirth classes recommende d.New OB sheet given.Gum Sprayer maylin hypertensi on. Will start baby aspirin daily. Baseline labs with new OB. If previous , counseling . Recommend repeat c/s. Pt agrees.Pt verbalizes that she understand s the importance of above instructio ns.All questions were answered.P atient reminded to have annual well woman examinatio n and address [facility] . [id number] Oswaldo Parsosn MD [place] [address],[place] [address] 08/14/2021 12:04:28 08/14/2021 12:51:11 [id number] Oswaldo Parsons MD [place] [address],[place] [address] 09/06/2021 09:32:40 09/06/2021 10:04:24 screening [id number] Z36.87 [id number] MD Sai Gamez [address],[place] [address] 09/06/2021 09:33:03 09/06/2021 14:31:59 Routine care 362900398 Z34.90 [id number] MD Sai Gamez [address],[place] [address] 10/12/2021 11:49:20 10/12/2021 12:21:32 Headache 22041999 R51.9 Nausea and vomiting 1693 2000 R11.2 [id number] MD Sai Gamez [address],[place] [address] 10/18/2021 15:54:49 10/18/2021 17:05:48 screening for malformation 818907319 Z36.3 [id number] Oswaldo Parsons MD [place] [address],[place] [address] 11/15/2021 15:59:42 11/15/2021 16:43:57 screening 098220447 Z36.2 [id number] Olena Arguello [facility] [address],[place] [address] 11/15/2021 16:00:14 11/15/2021 17:45:02 Fatigue 88050421 R53.83 - induced hypertension 42792704 O13.9 Headache 58879308 R51.9 [id number] MD Radha [place] [address],[place] [address] 12/10/2021 15:34:03 12/10/2021 17:05:06 screening 463673172 Z36.2 [id number] Ene Polanco MD [place] [address],[place] [address] 12/10/2021 15:37:29 12/11/2021 15:33:44 Anemia 754395138 D64.9 Routine an tenatal care 982033094 Z34.82 [id number] [facility] [address],[place] [address] 12/28/2021 15:19:30 12/28/2021 16:01:40 Routine care 954777258 Z34.93 [id number] Oswaldo Parsons MD [place] [address],[place] [address] 01/10/2022 16:20:38 01/10/2022 17:09:21 Chronic hypertension complicating AND/OR reason for care during 70558703 O16.9 [id number] Oswaldo Parsons MD [place] [address],[place] [address] 01/10/2022 16:21:03 01/10/2022 17:58:55 Maternal obesity complicating , childbirth and the puerperium, antepartum 8157547365 07 O99.213 O16.3 O36.8330 O14.93 Z3A.32 [id number] Oswaldo Parsons MD [place] [address],[place] [address] 01/10/2022 16:21:41 01/11/2022 10:19:40 Headache 52993359 R51.9 Herpes simplex 64592331 B00.9 Chronic hy pertension complicating AND/OR reason for care during 66845419 O16.9 [id number] MD Sai Gamez [address],[place] [address] 01/14/2022 10:36:33 01/14/2022 12:47:29 Anemia 098716874 D64.9 [id number] MD Sai Gamez [address],[place] [address] 01/14/2022 10:36:56 01/14/2022 11:25:12 Chronic hypertension complicating AND/OR reason for care during 38325834 O16.9 [id number] Oswaldo Parsons MD [place] [address],[place] [address] 01/21/2022 10:31:49 01/21/2022 11:43:25 Benign essential hypertension complicating , childbirth and the puerperium - not delivered 378161462 O10.019 [id number] Oswaldo Parsons MD [place] [address],[place] [address] 01/21/2022 10:32:10 01/21/2022 12:32:14 Routine care 868385529 Z34.90 [id number] Ene Polanco MD [place] [address],[place] [address] 01/28/2022 10:32:56 01/28/2022 11:32:45 Maternal obesity complicating , childbirth and the puerperium, antepartum 7787870603 07 O99.213 [id number] Olena Arguello [facility] [address],[place] [address] 01/31/2022 11:02:22 01/31/2022 16:21:10 Routine care 814273951 Z34.93 [id number] Oswaldo Parsons MD [place] [address],[place] [address] 01/31/2022 11:11:28 01/31/2022 12:27:07 Chronic hypertension complicating AND/OR reason for care during 05965256 O16.9 [id number] Oswaldo Parsons MD [place] [address],[place] [address] 02/04/2022 16:36:00 02/04/2022 17:45:07 -induced hypertension 07611837 O13.3 Z3A.35 [id number] Oswaldo Parsons MD [place] [address],[place] [address] 02/04/2022 16:36:28 02/04/2022 17:08:19 Chronic hypertension complicating AND/OR reason for care during 07568035 O16.9 [id number] MD Sai Gamez [address],[place] [address] 02/04/2022 16:36:50 02/04/2022 18:10:19 Routine care 459022992 Z34.90 [id number] MD Sai Gamez [address],[place] [address] 02/11/2022 11:01:21 02/11/2022 17:28:48 Routine care 550995638 Z34.90 [id number] MD Sai Gamez [address],[place] [address] 02/14/2022 10:28:52 02/14/2022 11:01:27 Maternal obesity complicating , childbirth and the puerperium, antepartum 0688831929 07 O99.213 O16.3 O36.8330 O14.93 Z3A.32 [id number] Oswaldo Parsons MD [place] [address],[place] [address] 02/20/2022 16:43:54 02/20/2022 17:26:27 Maternal obesity complicating , childbirth and the puerperium, antepartum 1890984456 07 O99.213 O16.3 O36.8330 O14.93 Z3A.32 [id number] Oswaldo Parsons MD [place] [address],[place] [address] 02/20/2022 16:44:52 02/20/2022 18:33:39 Routine care 186890015 Z34.90 [id number] Oswaldo Parsons MD [place] [address],[place] [address] 02/20/2022 16:45:07 02/20/2022 18:01:51 Maternal obesity complicating , childbirth and the puerperium, antepartum 0702798994 07 O99.213 O16.3 O36.8330 O14.93 Z3A.32 [id number] MD Sai Gamez [address],[place] [address] 02/26/2022 11:08:19 02/26/2022 11:09:40 [id number] Oswaldo Parsons MD [place] [address],[place] [address] 03/06/2022 15:53:26 03/06/2022 17:45:47 Postoperative pain 144687703 G89.18 32-year-ol d multi of at 1 week postop from a delivery. this was her 3rd delivery. She has ring excessive pain. Greater than her prior two sections. she alsio has epigastric pain. She says it is worse after she eats. She had difficulty lying back on the table. She began crying afterwards . Her incision is clean dry and intact. We agreed to pain management and observatio n. She is going to contact us if the pain gets worse. She also reports trouble with hemorrhoid s. We agreed to treat her hemorrhoid s. She is unable to get in out of the tub to soak them. We will obtain epigastric ultrasound . She will return 1 week. Spent more than 20 minutes face-to-fa ce. More than 50% was counseling . Hemorrhoids 37910472 K64 .9 [id number] Oswaldo Parsons MD [place] [address],[place] [address] 03/13/2022 15:28:14 03/14/2022 10:17:20 Postoperative pain 294100797 G89.18 This patient is a 32-year-ol d female who is 2 weeks postop from a delivery. She had excessive pain at her last visit. We were observing her and had a return within a week to be seen again to confirm that her pain was improving. She is doing well today. She has mild to Moderate pain. She will follow up In 2 weeks for routine visit. [id number] Oswaldo Parsons MD [place] [address],[place] [address] 04/09/2022 10:26:49 04/09/2022 11:10:44 depression 05188790 F53.0 care 59940811 8 Z39.2 this patient is a 32-year-ol d female presents for follow-up. She reports symptoms of depression anxiety. We agreed to treat with Lexapro and follow-up in 4 weeks. She is bottle feeding. Her baby is doing well but has RSV at this time. She has more less stopped bleeding. She has had sex we used a condom. We agreed to start oral contracept kevin pills. Combined oral contracept kevin pills at the 6 week shelia. [id number] LEWIS Rosa [place] [address],[place] [address] 06/06/2023 10:45:20 06/06/2023 12:11:14 Gynecologic examination 29999965 Z01.419 WWEBC - condomspap due testing declineden couraged annual exam with [facility] in 1 yr or sooner if needed Take Calcium with Vitamin D daily if not receiving in daily diet.It is strongly advised to have an annual flu shot and up can obtain at most pharmacies . If you have not had a TDap shot in the last 10 years you should obtain one as well.Discu ssed with patient & provided with informatio n regarding Gardisil vaccine to prevent the 4 strains for HPV that cause cervical cancer if under age 26.Encoura ge safe sexual practices, to use condoms and limit partners if not already in a monogamous relationsh ip.Do monthly self breast exams. Engage in daily exercise of low impact aerobic exercise 45-60 minutes 4-5 times weekly. Avoid tobacco and illicit drugs. This lifestyle behavior pattern will lead to less health conditions and longer life span. If BMI greater than 25 dietary consult advised.José Miguel caraballo received above instructio ns, and questions have been answered. If you have any questions please call or respond to this email.Iva mclaughlin was made aware of the patient portal and may obtain a paper copy of today's plan if desired. [id number] Oswaldo Parsons MD [place] [address],[place] [address] 05/10/2024 15:27:49 05/10/2024 16:26:33 Contraception care management 217321566 Z30.9 Discussed all control options in great detail. Pt would like to start ocp as she did well on OCP in the past. She is aware of the risks and benefits. She does not have any medical condition that is contraindi cated with the use of estrogen containing control. Pt will start her pills on the first friday following the start of her period. She is aware it is not effective for control the first month. She is also aware of the importance of taking at the same time every day. Encouraged use of condoms as the pill does not protect against STD's. Pt verbalized understand ing. Gynecologi c examination 44618784 Z01.419 Annual gynecologi darrell exam performed. Patient will come back in a year unless there are new symptoms. Suggest Calcium with Vitamin D if not eating in diet. Patient advised to get annual flu shot. Recommend yearly physicals and perform monthly breast exams. Genetic testing is available for patients with family history of cancer. Engage in safe sexual practices, use condoms. Encouraged to have daily exercise. Avoid tobacco and illicit drugs, moderation of alcohol. If BMI greater than 25 dietary consult advised. If you have any questions please call or email. mammogram- n/a colon cancer screening - n/a DEXA scan- n/a Pap smear- UTD (2021), will repeat per ASCCP guidelines laboratory evaluation - PCP STI testing - requested Genital he rpes simplex 93839661 A60.9 Patient requested suppressiv e therapy for HSV, reports 2-3 outbreaks per year. Venereal d isease screening 237728698 Z11.3 Pt requested STI testing.Di scussed the various types of STDs, related symptoms and the potential consequenc es (including effects on fertility) of STD infections . Reviewed ways to limit exposure and prevention techniques . Health Concerns Section Related Observation LastModified by Organization Detai ls LastModified Time None Recorded Concern Status LastModified by Organization Details LastModified Time None Recorded Advance Directives Directive N: Payers Insurance Date Sequence Insurance Name Policy Number Policy Palafox Covered Member ID Palafox Member ID Guarantor Name 10/02/2024 1 [employer] [id number] Thi Kirby [id number] Thi Kirby 03/16/2024 1 [facility] - DOS ON OR AFTER 20 (MEDICAID REPLACEMENT - HMO) Thi Kirby [id number] Thi Kirby 06/05/2023 1 [facility] - DOS PRIOR TO 2020 (MEDICAID REPLACEMENT - HMO) Thi Kirby [id number] Thi Kirby Notes Date Note Type Note Provider Name and Address Organization Details Recorded Time 2 text/html 32-year-old multi of at 1 week postop from a delivery. this was her 3rd delivery. She has ring excessive pain. Greater than her prior two sections. she alsio has epigastric pain. She says it is worse after she eats. She had difficulty lying back on the table. She began crying afterwards. Her incision is clean dry and intact. We agreed to pain management and observation. She is going to contact us if the pain gets worse. She also reports trouble with hemorrhoids. We agreed to treat her hemorrhoids. She is unable to get in out of the tub to soak them. We will obtain epigastric ultrasound. She will return 1 week. Spent more than 20 minutes [id number]. More than 50% was counseling. Oswaldo Parsons MD [address], [place], [address], [facility] 03/06/2022 17:14:01 2 text/html This patient is a 32-year-old female who is 2 weeks postop from a delivery. She had excessive pain at her last visit. We were observing her and had a return within a week to be seen again to confirm that her pain was improving. She is doing well today. She has mild to Moderate pain. She will follow up In 2 weeks for routine visit. Oswaldo Parsons MD [address], [place], [address], [facility] 03/13/2022 21:20:19 2 text/html VisitReported by Patient mood concerns - this patient is a 32-year-old female presents for follow-up. She reports symptoms of depression anxiety. We agreed to treat with Lexapro and follow-up in 4 weeks. She is bottle feeding. Her baby is doing well but has RSV at this time. She has more less stopped bleeding. She has had sex we used a condom. We agreed to start oral contraceptive pills. Combined oral contraceptive pills at the 6 week shelia. Oswaldo Parsons MD [address], [place], [address], [facility] 04/09/2022 11:08:40 3 text/html Annual GYNReported by PatientGenitourinary symptomsFor menstrual cycle, patient reportsnormal menses. For urinary symptoms, patient reportsno hematuriaandno incontinence. For vulva, patient reportsno genital lesion. For vagina, patient reportsnormal vaginal discharge.Breast symptomsFor breast, patient reportsno breast pain,no breast lump, andno nipple discharge.ContraceptionFo r current contraception, patient reportssatisfied with current contraception(condoms/wit hdrawal).Endocrine symptomsFor sexual complaints, patient reportsno sexual complaints,no pain during intercourse, andnormal libido. For menopausal symptoms, patient reportsno menopausal symptomsandnormal vaginal lubrication.Psychological symptomsFor psychological symptoms, patient reportsno depression,no anxiety, andno pmdd.Preventative measuresFor preventive measures, patient reportsencourage self breast examination,encourage regular exercise,encourage no tobacco use, andencourage regular mammograms starting age 40.no hx of abnormal papslast pap 10/12/21 - normalcondoms/withdrawal for BC - not int in other methods at this time LEWIS Rosa [address], [place], [address], [facility] 06/06/2023 11:54:29 4 text/html Annual GYNReported by PatientHistoryFor history, patient reportsno gynecologic complaints.Genitourinary symptomsFor menstrual cycle, patient reportsnormal menses. For urinary symptoms, patient reportsno hematuriaandno incontinence. For vulva, patient reportsno genital lesion. For vagina, patient reportsnormal vaginal discharge.Breast symptomsFor breast, patient reportsno breast pain,no breast lump, andno nipple discharge.ContraceptionFo r current contraception, patient reportscondoms.Endocrine symptomsFor sexual complaints, patient reportsno sexual complaints,no pain during intercourse, andnormal libido. For menopausal symptoms, patient reportsno menopausal symptomsandnormal vaginal lubrication.Psychological symptomsFor psychological symptoms, patient reportsno depression,no anxiety, andno pmdd.Preventative measuresFor preventive measures, patient reportsencourage self breast examination,encourage regular exercise,encourage no tobacco use, andencourage regular mammograms starting age 40. Haydee Bree [facility] 05/10/2024 16:35:42 OBGyn Episode Ob Episode Information Episode Created Date Number of Fetuses Patient Bloodtype Patient rh Status Prepregnancy Weight lbs Domestic Partner Domestic Partner Phone Father Name Ore Feeder Status 05/30/20 20 1 CLOSED Fetus Data First Name Last Name Admitted to NICU Weight (g) Sex Living Outcome Pediatric Complications Fetus ID Race Codes Race Delivery Type [phone] 9 F Prematur e 6624 Primary Justin Calculation Initial Justin Date Initial Exam Date Initial Exam Provider Initial Ultrasound Date Last Menstrual Period Date Ultra Sound Weeks Gestation 0 Eighteen To Twenty Week Justin Update Ultra Sound Date Fundal Height At Umbil Quickening Date Ultra Sound Latest Weeks Gestation Final Justin Confirmed By Final Justin Confirmed Date Final Justin Date Ultra Sound Latest Days Gestation 0 0 Menstrual History Last Menstrual Date Menses Monthly On Bcp Conception Prior Menses Frequency Hcg Plus Date Menarche Onset Age Delivery Information Delivery Date Delivery Type Labor Anesthesia Weeks Gestation Incision Type Labor Labor Length Hrs Delivered By Post Complications Tubal Sterilization Discharge Date Comments 6 37 Nena High risk, breech Discharge Information Feeding Method Contraceptive Method Maternal HG B and HCT Levels Ob Episode Information Episode Created Date Number of Fetuses Patient Bloodtype Patient rh Status Prepregnancy Weight lbs Domestic Partner Domestic Partner Phone Father Name Ore Feeder Status 05/30/20 20 1 O Negative 230 CLOSED Fetus Data First Name Last Name Admitted to NICU Weight (g) Sex Living Outcome Pediatric Complications Fetus ID Race Codes Race Delivery Type [id number] Problems Problem Notes Problem Name Start Date End Date Resolution Snomed Code Not e Past history of section 812234173 Repeat L TCS Past history of gestational hypertension 076422699 growth restriction 61779 007 SGA - M 09/13 10am u/s [place] & LII [facility] 10/02 11:15am u/s only & echo 09/22 11:15am Justin Calculation Initial Justin Date Initial Exam Date Initial Exam Provider Initial Ultrasound Date Last Menstrual Period Date Ultra Sound Weeks Gestation 12/02/2020 05/30/2020 05/08/2020 02/26/2020 9 Eighteen To Twenty Week Justin Update Ultra Sound Date Fundal Height At Umbil Quickening Date Ultra Sound Latest Weeks Gestation Final Justin Confirmed By Final Justin Confirmed Date Final Justin Date Ultra Sound Latest Days Gestation 0 [email or web address] 05/30/2020 12/03/19 21 0 Pre-gladys Flowsheet Flowsheet Date 05/08/2020 Tidwell Score Blood Edema Fundus Height Fundus Units Glucose Ketones Leukocytes Nitrite Labor Signs Protein Cervic Dilation Cervic Effacement Cervic Station Type Weight in lbs Pre/Post Dialysis Refused BP Diastolic BP Location Tested BP Systolic BP Type Fetus Heart Rate Present Fetus Movement Comments Flowsheet Date 05/30/2020 Tidwell Score Blood Edema Fundus Height Fundus Units Glucose Ketones Leukocytes Nitrite Labor Signs Protein Cervic Dilation Cervic Effacement Cervic Station 12 Type Weight in lbs Pre/Post Dialysis Refused Weight 235.746626451417 BP Diastolic BP Location Tested BP Systolic BP Type 81 R arm 131 sitting Fetus Heart Rate Present A 153 Fetus Movement Comments This patient is a 30-year-ol d female who presents for initial care. She is a 2 para 1001 at 13 weeks gestation. She delivered at 37 weeks for gestational hypertension previously. Her baby was also growth restricted. She knows to start a baby aspirin. We talked about her previous delivery. She is considering repeat and TOLAC. We will begin routine care. Flowsheet Date 07/25/2020 Tidwell Score Blood Edema Fundus Height Fundus Units Glucose Ketones Leukocytes Nitrite Labor Signs Protein Cervic Dilation Cervic Effacement Cervic Station Type Weight in lbs Pre/Post Dialysis Refused BP Diastolic BP Location Tested BP Systolic BP Type Fetus Heart Rate Present Fetus Movement Comments Flowsheet Date 07/25/2020 Tidwell Score Blood Edema Fundus Height Fundus Units Glucose Ketones Leukocytes Nitrite Labor Signs Protein Cervic Dilation Cervic Effacement Cervic Station 22 Type Weight in lbs Pre/Post Dialysis Refused Weight 243.402971907101 BP Diastolic BP Location Tested BP Systolic BP Type Fetus Heart Rate Present A 145 Fetus Movement Comments patient is showing growth re striction on the 05/07 week anatomy ultrasound today, she will need to see MFM soon as possible. Flowsheet Date 08/22/2020 Tidwell Score Blood Edema Fundus Height Fundus Units Glucose Ketones Leukocytes Nitrite Labor Signs Protein Cervic Dilation Cervic Effacement Cervic Station 25 trace Type Weight in lbs Pre/Post Dialysis Refused Weight 253.039198841202 BP Diastolic BP Location Tested BP Systolic BP Type 76 R arm 136 sitting Fetus Heart Rate Present A 145 Fetus Movement A Yes Comments has follow-up with MFM in 10 days, growth at the 6th percentile at the last ultrasound. No complaints Flowsheet Date 09/12/2020 Tidwell Score Blood Edema Fundus Height Fundus Units Glucose Ketones Leukocytes Nitrite Labor Signs Protein Cervic Dilation Cervic Effacement Cervic Station none 27 Type Weight in lbs Pre/Post Dialysis Refused Weight 257.163212155537 BP Diastolic BP Location Tested BP Systolic BP Type 84 126 Fetus Heart Rate Present A 140 Fetus Movement A Yes Comments Having a boy Jen. Pt pl anning to deliver with [facility]. She is going to talk to them tomorrow. Encouraged tdap and flu shot. Menstrual History Last Menstrual Date Menses Monthly On Bcp Conception Prior Menses Frequency Hcg Plus Date Menarche Onset Age 0902/26/2020 Genetic Screening And Infection History Question Response Note Mental Retardation/Autism false Patient's Age Will Be 35 Years Or Older At Estim ated Date of Delivery false Thalassemia (Eritrean, Tristanian, Mediterranean, Or Background): MCV < 80 false Neural Tube Defect (Meningomyelocele, Spina Bifi da, Or Anencephaly) false Congenital Heart Defect false Down Syndrome false Jeevan-Sachs (eg, Sikh, Cajun, Uzbek-Tajik) f alse Lacey Disease false Sickle Cell Disease Or Trait () false Hemophilia Or Other Blood Disorders false Muscular Dystrophy false Cystic Fibrosis false [place] Chorea false Intellectual Disability/Autism false If Yes, Was Person Tested For Fragile X? false Other Inherited Genetic Or Chromosomal Disorder false Maternal Metabolic Disorder (eg, Type 1 Diabetes , PKU) false Patient Or Baby's Father Had A Child With Defects Not Listed Above false Recurrent Loss, Or A Stillbirth false Medications (including Suppl ements, Vitamins, Herbs, OTC Drugs), Illicit/Recreational Drugs, Alcohol false If Yes, Agent(s) And Strength/Dosage false Any Other Genetic History false Live With Someone With TB Or Exposed To TB false Patient Or Partner Has History Of Genital Herpes false Rash Or Viral Illness Since Last Menstrual Perio d false History Of STD, Gonorrhea, Chlamydia, HPV, Syphi lis false Other Infection History false History of HIV false History of Hepatitis false Prior GBS-infected child false Hemoglobinopathy Or Carrier false Other Structural Defect false Recent Travel History Outside of Country false Delivery Information Delivery Date Delivery Type Labor Anesthesia Weeks Gestation Incision Type Labor Labor Length Hrs Delivered By Post Complications Tubal Sterilization Discharge Date Comments Discharge Information Feeding Method Contraceptive Method Maternal HG B and HCT Levels Ob Episode Information Episode Created Date Number of Fetuses Patient Bloodtype Patient rh Status Prepregnancy Weight lbs Domestic Partner Domestic Partner Phone Father Name Ore Feeder Status 09/07/19 1 O Negative 250 CLOSED Fetus Data First Name Last Name Admitted to NICU Weight (g) Sex Living Outcome Pediatric Complications Fetus ID Race Codes Race Delivery Type 2863.29 95 F true Full Term [id number] Repeat Problems Problem Notes NIPT NL XX Problem Name Start Date End Date Resolution Snomed Code Not e Headache 80766982 Fioricet T xed- Neuro appt Dr Caballero 01/04/22 1:30 - gave no help Pre-eclampsia 468669279 Possib ly just PIH, delivered at 37 week X 2 scheduled Deliveries by 04 X2, repeat Herpes simplex 09/18/2020 [id number] Type 2, Found in TORCH panel done by M 09/07/2020 Chronic hypertension in obstetric context [id number] dc'ed labe talol -ASA & testing at 32 wks - stable Obesity [id number] RhD negative [id number] 12/05/21 given Anemia [id number] s/p Iron i nfusion Hypoglycemia [id number] regular snacks Justin Calculation Initial Justin Date Initial Exam Date Initial Exam Provider Initial Ultrasound Date Last Menstrual Period Date Ultra Sound Weeks Gestation 03/05/2022 09/06/2021 08/14/2021 05/29/2021 10 Eighteen To Twenty Week Justin Update Ultra Sound Date Fundal Height At Umbil Quickening Date Ultra Sound Latest Weeks Gestation Final Justin Confirmed By Final Justin Confirmed Date Final Justin Date Ultra Sound Latest Days Gestation 0 [email or web address] 09/06/2021 03/05/20 22 0 Pre- Flowsheet Flowsheet Date 09/06/2021 Tidwell Score Blood Edema Fundus Height Fundus Units Glucose Ketones Leukocytes Nitrite Labor Signs Protein Cervic Dilation Cervic Effacement Cervic Station 14 Type Weight in lbs Pre/Post Dialysis Refused Weight 244.665917692458 BP Diastolic BP Location Tested BP Systolic BP Type 74 L arm 114 sitting Fetus Heart Rate Present A 145 Fetus Movement Comments This patient is a 31-year-ol d 3 para 2001 at 14 weeks gestation who presents for initial visit. She has a history of gestational hypertension and possibly preeclampsia. She has a history of herpes simplex and deliveries by . Talked about timing of delivery. Talked about vaccinations. She is given all of the vaccine recommendations. Talked about care in detail. She will return in 4 weeks. She is doing genetic testing on laboratory evaluation today. Flowsheet Date 10/12/2021 Tidwell Score Blood Edema Fundus Height Fundus Units Glucose Ketones Leukocytes Nitrite Labor Signs Protein Cervic Dilation Cervic Effacement Cervic Station 20 Type Weight in lbs Pre/Post Dialysis Refused Weight 246.073297438877 BP Diastolic BP Location Tested BP Systolic BP Type 71 R arm 120 sitting Fetus Heart Rate Present A 145 Fetus Movement Comments headaches continue, fioricet is helping. pap done today Flowsheet Date 10/18/2021 Tidwell Score Blood Edema Fundus Height Fundus Units Glucose Ketones Leukocytes Nitrite Labor Signs Protein Cervic Dilation Cervic Effacement Cervic Station Type Weight in lbs Pre/Post Dialysis Refused BP Diastolic BP Location Tested BP Systolic BP Type Fetus Heart Rate Present Fetus Movement Comments Flowsheet Date 11/15/2021 Tidwell Score Blood Edema Fundus Height Fundus Units Glucose Ketones Leukocytes Nitrite Labor Signs Protein Cervic Dilation Cervic Effacement Cervic Station Type Weight in lbs Pre/Post Dialysis Refused BP Diastolic BP Location Tested BP Systolic BP Type Fetus Heart Rate Present Fetus Movement Comments Flowsheet Date 11/15/2021 Tidwell Score Blood Edema Fundus Height Fundus Units Glucose Ketones Leukocytes Nitrite Labor Signs Protein Cervic Dilation Cervic Effacement Cervic Station neg none none trace Type Weight in lbs Pre/Post Dialysis Refused Weight 250.312190220891 BP Diastolic BP Location Tested BP Systolic BP Type 74 117 Fetus Heart Rate Present Fetus Movement A Yes Comments Headaches almost daily. Impr oves with rest and medication. Refill on fioricet. Will schedule neuro consult.Has had increased fatigue recently. Also occasional dizziness. Talked about hydration, small frequent meals and ways to help with optimal blood flow.PIH labs along with tsh today. Plan 1 hour gtt and rhogam at [facility] before next visit. Order sent.Repeat u/s in 4 weeks. Suboptimal view. Flowsheet Date 12/10/2021 Tidwell Score Blood Edema Fundus Height Fundus Units Glucose Ketones Leukocytes Nitrite Labor Signs Protein Cervic Dilation Cervic Effacement Cervic Station Type Weight in lbs Pre/Post Dialysis Refused BP Diastolic BP Location Tested BP Systolic BP Type Fetus Heart Rate Present Fetus Movement Comments Flowsheet Date 12/10/2021 Tidwell Score Blood Edema Fundus Height Fundus Units Glucose Ketones Leukocytes Nitrite Labor Signs Protein Cervic Dilation Cervic Effacement Cervic Station neg trace 28 none trace Type Weight in lbs Pre/Post Dialysis Refused Weight 249.847359290689 BP Diastolic BP Location Tested BP Systolic BP Type 75 117 Fetus Heart Rate Present A 145 Fetus Movement A Yes Comments Doing fine. Good FM. Us toda y anatomy now complete and wnl but 15% and breech. Will monitor growth for cHTN anyways. Had two 5# babies at 37w. Normal GCT but Hgb 8.5 despite already taking PO iron for a month. DIscussed IV iron, will do iron studies today and arrange. Got Rhogam. Flowsheet Date 12/28/2021 Tidwell Score Blood Edema Fundus Height Fundus Units Glucose Ketones Leukocytes Nitrite Labor Signs Protein Cervic Dilation Cervic Effacement Cervic Station neg none 33 none trace Type Weight in lbs Pre/Post Dialysis Refused Weight 253.328294639082 BP Diastolic BP Location Tested BP Systolic BP Type 73 116 Fetus Heart Rate Present A 152 Fetus Movement A Yes Comments doing well plan sec tion, precautions reviewed, testing scheduled Flowsheet Date 01/10/2022 Tidwell Score Blood Edema Fundus Height Fundus Units Glucose Ketones Leukocytes Nitrite Labor Signs Protein Cervic Dilation Cervic Effacement Cervic Station Type Weight in lbs Pre/Post Dialysis Refused BP Diastolic BP Location Tested BP Systolic BP Type Fetus Heart Rate Present Fetus Movement Comments Flowsheet Date 01/10/2022 Tidwell Score Blood Edema Fundus Height Fundus Units Glucose Ketones Leukocytes Nitrite Labor Signs Protein Cervic Dilation Cervic Effacement Cervic Station Type Weight in lbs Pre/Post Dialysis Refused BP Diastolic BP Location Tested BP Systolic BP Type Fetus Heart Rate Present Fetus Movement Comments Flowsheet Date 01/10/2022 Tidwell Score Blood Edema Fundus Height Fundus Units Glucose Ketones Leukocytes Nitrite Labor Signs Protein Cervic Dilation Cervic Effacement Cervic Station Type Weight in lbs Pre/Post Dialysis Refused Weight 256.768277916621 BP Diastolic BP Location Tested BP Systolic BP Type 83 R arm 126 sitting Fetus Heart Rate Present A 143 Fetus Movement Comments discussed headache treatment . Discussed treatment options. Prescribe Reglan diphenhydramine. Talked about chronic hypertension under treatment. Blood pressure is well controlled. Talked about HSV transmission/vertical transmission prevention. We started prophylactic therapy. Flowsheet Date 01/14/2022 Tidwell Score Blood Edema Fundus Height Fundus Units Glucose Ketones Leukocytes Nitrite Labor Signs Protein Cervic Dilation Cervic Effacement Cervic Station Type Weight in lbs Pre/Post Dialysis Refused BP Diastolic BP Location Tested BP Systolic BP Type Fetus Heart Rate Present Fetus Movement Comments Flowsheet Date 01/14/2022 Tidwell Score Blood Edema Fundus Height Fundus Units Glucose Ketones Leukocytes Nitrite Labor Signs Protein Cervic Dilation Cervic Effacement Cervic Station 32 Type Weight in lbs Pre/Post Dialysis Refused Weight 256.745347333383 BP Diastolic BP Location Tested BP Systolic BP Type 68 R arm 107 sitting Fetus Heart Rate Present A 145 Fetus Movement Comments no problrems , patient is on neuro, he did not mention an a diagnosis. He offered no treatment. NST today, reassuring, reactive. Headaches continue to bother her. She was recommended Tylenol tension headache. She could take that in conjunction with the Benadryl / Reglan. We were considering transfusion timing. She does need blood prior to or during her . we are going to check her CBC today and consider that Further. Flowsheet Date 01/21/2022 Tidwell Score Blood Edema Fundus Height Fundus Units Glucose Ketones Leukocytes Nitrite Labor Signs Protein Cervic Dilation Cervic Effacement Cervic Station Type Weight in lbs Pre/Post Dialysis Refused BP Diastolic BP Location Tested BP Systolic BP Type Fetus Heart Rate Present Fetus Movement Comments Flowsheet Date 01/21/2022 Tidwell Score Blood Edema Fundus Height Fundus Units Glucose Ketones Leukocytes Nitrite Labor Signs Protein Cervic Dilation Cervic Effacement Cervic Station neg none 35 none trace Type Weight in lbs Pre/Post Dialysis Refused Weight 255.895716196850 BP Diastolic BP Location Tested BP Systolic BP Type 75 134 Fetus Heart Rate Present A 145 Fetus Movement A Yes Comments discontinued labetalol lanao n normotensive, has issues with blood sugar she thinks. She has more months of marked weakness. Dizziness. She would like to check her blood sugars. She is going to look for glue, her of her mother's. , starting Valtrex, growth ultrasound in 2 weeks. Flowsheet Date 01/28/2022 Tidwell Score Blood Edema Fundus Height Fundus Units Glucose Ketones Leukocytes Nitrite Labor Signs Protein Cervic Dilation Cervic Effacement Cervic Station Type Weight in lbs Pre/Post Dialysis Refused BP Diastolic BP Location Tested BP Systolic BP Type Fetus Heart Rate Present Fetus Movement Comments Flowsheet Date 01/31/2022 Tidwell Score Blood Edema Fundus Height Fundus Units Glucose Ketones Leukocytes Nitrite Labor Signs Protein Cervic Dilation Cervic Effacement Cervic Station neg none 36 none trace Type Weight in lbs Pre/Post Dialysis Refused Weight 254.717189304558 BP Diastolic BP Location Tested BP Systolic BP Type 69 110 Fetus Heart Rate Present A 135 Fetus Movement A Yes Comments Pt has been checking blood s ugars at home d/t hypoglycemia symptoms. She is as low as 70 sometimes. The highest after eating has been 116. The highest fasting has been mid 70's. Discussed importance of frequent high protein meals and snacks. No contractions, leaking or bleeding. Good movement. Encouraged to call and schedule pre admission. Also encouraged tdap. Has been taking valtrex. No s/s of outbreak. Flowsheet Date 01/31/2022 Tidwell Score Blood Edema Fundus Height Fundus Units Glucose Ketones Leukocytes Nitrite Labor Signs Protein Cervic Dilation Cervic Effacement Cervic Station Type Weight in lbs Pre/Post Dialysis Refused BP Diastolic BP Location Tested BP Systolic BP Type Fetus Heart Rate Present Fetus Movement Comments Flowsheet Date 02/04/2022 Tidwell Score Blood Edema Fundus Height Fundus Units Glucose Ketones Leukocytes Nitrite Labor Signs Protein Cervic Dilation Cervic Effacement Cervic Station Type Weight in lbs Pre/Post Dialysis Refused BP Diastolic BP Location Tested BP Systolic BP Type Fetus Heart Rate Present Fetus Movement Comments Flowsheet Date 02/04/2022 Tidwell Score Blood Edema Fundus Height Fundus Units Glucose Ketones Leukocytes Nitrite Labor Signs Protein Cervic Dilation Cervic Effacement Cervic Station Type Weight in lbs Pre/Post Dialysis Refused BP Diastolic BP Location Tested BP Systolic BP Type Fetus Heart Rate Present Fetus Movement Comments Flowsheet Date 02/04/2022 Tidwell Score Blood Edema Fundus Height Fundus Units Glucose Ketones Leukocytes Nitrite Labor Signs Protein Cervic Dilation Cervic Effacement Cervic Station 35 Type Weight in lbs Pre/Post Dialysis Refused Weight 249.900804808609 BP Diastolic BP Location Tested BP Systolic BP Type 76 R arm 121 sitting Fetus Heart Rate Present A 145 Fetus Movement Comments moving back to 39 weeks, chronic hypertension diagnosis is inaccurate. Good movement. Flowsheet Date 02/11/2022 Tidwell Score Blood Edema Fundus Height Fundus Units Glucose Ketones Leukocytes Nitrite Labor Signs Protein Cervic Dilation Cervic Effacement Cervic Station 36 Type Weight in lbs Pre/Post Dialysis Refused Weight 255.274994035401 BP Diastolic BP Location Tested BP Systolic BP Type 75 R arm 126 sitting Fetus Heart Rate Present A 145 Fetus Movement A Yes Comments GBS done, testing at the hospital today. Blood pressures are fine. Flowsheet Date 02/14/2022 Tidwell Score Blood Edema Fundus Height Fundus Units Glucose Ketones Leukocytes Nitrite Labor Signs Protein Cervic Dilation Cervic Effacement Cervic Station Type Weight in lbs Pre/Post Dialysis Refused BP Diastolic BP Location Tested BP Systolic BP Type Fetus Heart Rate Present Fetus Movement Comments Flowsheet Date 02/20/2022 Tidwell Score Blood Edema Fundus Height Fundus Units Glucose Ketones Leukocytes Nitrite Labor Signs Protein Cervic Dilation Cervic Effacement Cervic Station Type Weight in lbs Pre/Post Dialysis Refused BP Diastolic BP Location Tested BP Systolic BP Type Fetus Heart Rate Present Fetus Movement Comments Flowsheet Date 02/20/2022 Tidwell Score Blood Edema Fundus Height Fundus Units Glucose Ketones Leukocytes Nitrite Labor Signs Protein Cervic Dilation Cervic Effacement Cervic Station Type Weight in lbs Pre/Post Dialysis Refused BP Diastolic BP Location Tested BP Systolic BP Type Fetus Heart Rate Present Fetus Movement Comments Flowsheet Date 02/20/2022 Tidwell Score Blood Edema Fundus Height Fundus Units Glucose Ketones Leukocytes Nitrite Labor Signs Protein Cervic Dilation Cervic Effacement Cervic Station Type Weight in lbs Pre/Post Dialysis Refused Weight 262.643342795843 BP Diastolic BP Location Tested BP Systolic BP Type 85 R arm 139 sitting Fetus Heart Rate Present A 134 Fetus Movement Comments reactive NST, reassuring ant enatal testing throughout . To perform in Six days Flowsheet Date 02/26/2022 Tidwell Score Blood Edema Fundus Height Fundus Units Glucose Ketones Leukocytes Nitrite Labor Signs Protein Cervic Dilation Cervic Effacement Cervic Station Type Weight in lbs Pre/Post Dialysis Refused BP Diastolic BP Location Tested BP Systolic BP Type Fetus Heart Rate Present Fetus Movement Comments Flowsheet Date 03/06/2022 Tidwell Score Blood Edema Fundus Height Fundus Units Glucose Ketones Leukocytes Nitrite Labor Signs Protein Cervic Dilation Cervic Effacement Cervic Station Type Weight in lbs Pre/Post Dialysis Refused Weight 241.45202956321 BP Diastolic BP Location Tested BP Systolic BP Type 95 L arm 136 standing 89 R arm 143 standing Fetus Heart Rate Present Fetus Movement Comments Flowsheet Date 03/13/2022 Tidwell Score Blood Edema Fundus Height Fundus Units Glucose Ketones Leukocytes Nitrite Labor Signs Protein Cervic Dilation Cervic Effacement Cervic Station Type Weight in lbs Pre/Post Dialysis Refused Weight 236.946160503210 BP Diastolic BP Location Tested BP Systolic BP Type 81 R arm 134 sitting Fetus Heart Rate Present Fetus Movement Comments Menstrual History Last Menstrual Date Menses Monthly On Bcp Conception Prior Menses Frequency Hcg Plus Date Menarche Onset Age 1205/29/2021 Genetic Screening And Infection History Question Response Note Mental Retardation/Autism false Patient's Age Will Be 35 Years Or Older At Estim ated Date of Delivery false Thalassemia (Eritrean, Tristanian, Mediterranean, Or Background): MCV < 80 false Neural Tube Defect (Meningomyelocele, Spina Bifi da, Or Anencephaly) false Congenital Heart Defect false Down Syndrome false Jeevan-Sachs (eg, Sikh, Cajun, Uzbek-Tajik) f alse Lacey Disease false Sickle Cell Disease Or Trait () false Hemophilia Or Other Blood Disorders false Muscular Dystrophy false Cystic Fibrosis false [place] false Intellectual Disability/Autism false If Yes, Was Person Tested For Fragile X? false Other Inherited Genetic Or Chromosomal Disorder false Maternal Metabolic Disorder (eg, Type 1 Diabetes , PKU) false Patient Or Baby's Father Had A Child With Defects Not Listed Above false Recurrent Loss, Or A Stillbirth false Medications (including Suppl ements, Vitamins, Herbs, OTC Drugs), Illicit/Recreational Drugs, Alcohol false If Yes, Agent(s) And Strength/Dosage false Any Other Genetic History false Live With Someone With TB Or Exposed To TB false Patient Or Partner Has History Of Genital Herpes true Rash Or Viral Illness Since Last Menstrual Perio d false History Of STD, Gonorrhea, Chlamydia, HPV, Syphi lis false Other Infection History false History of HIV false History of Hepatitis false Prior GBS-infected child false Hemoglobinopathy Or Carrier false Other Structural Defect false Recent Travel History Outside of Country false Delivery Information Delivery Date Delivery Type Labor Anesthesia Weeks Gestation Incision Type Labor Labor Length Hrs Delivered By Post Complications Tubal Sterilization Discharge Date Comments 2 None Regional-Sp inal 39 Low Transvers e false Oswaldo Parsons MD Rpt C/S, Herpes Simplex, Maternal obesity & CHTN Discharge Information Feeding Method Contraceptive Method Maternal HG B and HCT Levels Bottle
[2025-01-06 15:13] VITALS: BP 111/65; PULSE 81; RESP 16; TEMP 36.7; O2SAT 100
--- NOTE | 2025-01-06 15:28 | ED.HA ---
HPI - Headache General Chief Complaint: Headache Stated Complaint: Headache Time Seen by Provider: 01/06/25 15:15 Source: patient and RN notes reviewed Mode of arrival: ambulatory Limitations: no limitations History of Present Illness HPI Narrative: 34-year-old female presents Express Care complaining of headache for 2 days. Patient has a history of migraines as a child. Patient said the headache started on the left side of her head followed by photophobia, phonophobia, and nausea. Patient has been taking Tylenol ibuprofen without much relief. Patient has appointment with her PCP tomorrow but could not wait any longer. Patient denies any slurred speech, focal weakness dizziness, lightheadedness, loss of consciousness, vomiting, fevers body aches, chills, any other symptoms. Related Data Home Medications ?Medication ?Instructions ?Recorded ?Confirmed ?Last Taken ?Type bupropion HCl 150 mg 24 hr tablet, mg PO 04/10/24 Unknown History extended release buspirone 10 mg tablet mg 04/10/24 Unknown History citalopram 20 mg tablet mg 04/10/24 Unknown History citalopram 40 mg tablet mg 04/10/24 Unknown History semaglutide (weight loss) 0.5 mg subcut 04/10/24 Unknown History mg/0.5 mL subcutaneous pen injector (Wegovy) naltrexone 50 mg tablet mg 01/06/25 Unknown History trazodone 100 mg tablet mg 01/06/25 Unknown History Allergies Allergy/AdvReac Type Severity Reaction Status Date / Time NSAIDS (Non-Steroidal AdvReac Intermediate Nausea and Verified 01/06/25 15:19 Anti-Inflamma Vomiting Review of Systems Review of Systems: CONSTITUTIONAL: Denies fever, chills, or sweats. EYES: Denies visual changes, redness, or discharge. Positive for photophobia. ENT: Denies rhinorrhea, congestion, sore throat, or otalgia. Positive for phonophobia CARDIOVASCULAR: Denies chest pain, palpitations, or edema. RESPIRATORY: Denies cough or dyspnea. GASTROINTESTINAL: Denies abdominal pain, vomiting, or diarrhea. Positive for nausea. GENITOURINARY: Denies dysuria or hematuria. SKIN: Denies rash or itching. MUSCULOSKELETAL: Denies back pain, joint pain, or myalgia. NEUROLOGIC: Positive for headaches. Negative for numbness, slurred speech, focal weakness, facial droop, or weakness. PSYCHIATRIC: Denies anxiety or depression. All other systems reviewed are negative, except as documented in HPI. COUNTS INCLUDE 234 BEDS AT THE [facility] Past Medical History Medical History Migraine Anxiety Pancreatitis Gestational hypertension Surgical History Surgical History Previous section x3 S/P wisdom tooth extraction H/O gastric bypass Family History Family History Father Family history of mental disorder Depression Hypertension Family history of obesity Mother Depression Hypertension Family history of diabetes mellitus in first degree relative Family history of neuropathy Grandparent Hypertension Family history of coronary artery disease Social History Social History Smoking status: Never smoker Alcohol intake: current Alcohol use details: Intermittent Substance use: never Living arrangements: with family Spiritual care concerns: No Comments At the time of my signature, I reviewed and agree with the nursing past medical, surgical, social, and family history. There is no relevant family history pertinent to the patient complaint. Exam Narrative: GENERAL: This is a well-nourished, well-developed adult, in no apparent distress. They are non ill-appearing, nontoxic appearing. HEAD: normocephalic, atraumatic. EYES: Sclera clear/white. Conjunctiva normal. Vision is grossly intact. Extraocular movements intact. Pupils PERRLA EARS: External ears normal, Hearing grossly intact. NOSE: External nose normal THROAT: Mucous membranes moist, NECK: Neck supple, CARDIOVASCULAR: Regular rate and rhythm RESPIRATORY: Respiratory rate normal, respiratory effort nonlabored, no respiratory distress SKIN: warm, Dry, intact with no suspicious lesions or rash, good texture and turgor. NEURO: awake, alert, and oriented to person, place and time. There were no obvious focal neurologic abnormalities. Cranial 2 through 12 grossly intact. EXTREMITIES: No joint tenderness, effusion, or edema noted. Course Course Emergency Course: Portions of this record may have been created with voice recognition software Level of Care: Express Care Visit Vital Signs Vital signs: Vital Signs Temperature 98.0 F 01/06/25 15:13 Pulse Rate 81 01/06/25 15:13 Respiratory Rate 16 01/06/25 15:13 Blood Pressure 111/65 01/06/25 15:13 Pulse Oximetry 100 01/06/25 15:13 Oxygen Delivery Room Air 01/06/25 15:13 Temperature 98.0 F 01/06/25 15:13 Pulse Rate 81 01/06/25 15:13 Respiratory Rate 16 01/06/25 15:13 Blood Pressure 111/65 01/06/25 15:13 Pulse Oximetry 100 01/06/25 15:13 Oxygen Delivery Room Air 01/06/25 15:13 Reviewed MDM - Headache MDM Narrative Medical decision making narrative: Patient symptoms is consistent with migraine headache. Patient or any took ibuprofen today therefore cannot give patient any additional NSAIDs today. Patient given a shot of dexamethasone. Advised patient continue taking [id number] medications following instructions on the bottles at home. Patient has follow-up with PCP tomorrow. Patient would like to use Naprosyn instead of Motrin, I told her she can start Naprosyn tomorrow but do not combine the other NSAIDs together. Discussed physical exam findings. Advised supportive measures and signs/symptoms to go to the ER. Pt is appropriate for outpt treatment and f/u. Differential Diagnosis Differential diagnosis: Likely migraine, tension headache and headache Critical Care Time Critical Care Time Critical Care Time: No Discharge Plan Discharge Clinical Impression: Migraine Qualifiers: Migraine type: unspecified Status migrainosus presence: without status migrainosus Intractability: not intractable Qualified Code(s): G43.909 - Migraine, unspecified, not intractable, without status migrainosus Patient Disposition: Home Condition: Stable Instructions: Migraine Headache (ED) Additional Instructions: You may take naproxen sodium as needed for pain. Please follow the instructions on the bottle. Do combine naproxen sodium with any other NSAIDs such as ibuprofen, aspirin, etc.. Do not take naproxen sodium today as you have taken Motrin today. You may also use extra-strength Tylenol as needed for pain, follow instructions on the bottle as directed. Your given a shot of dexamethasone today. Follow-up with her PCP tomorrow. Your headache becomes worse, severe nausea and vomiting, dizziness, lightheadedness, slurred speech, one-sided weakness, loss of consciousness, vision changes, or any serious concerns please go to the ER immediately. Patient Language: Azeri Prescriptions: No Action citalopram 40 mg tablet citalopram 20 mg tablet buspirone 10 mg tablet bupropion HCl 150 mg tablet extended release 24 hr PO Wegovy 0.5 mg/0.5 mL pen injector SUBCUT naltrexone 50 mg tablet trazodone 100 mg tablet Follow-up/Referrals: Harms,Aaron Atkins M.D. [Primary Care Provider] - Stand Alone Forms: Work/School Release IP Time of Disposition: 15:35
[2025-01-06] MEDS: dexAMETHasone SOD PHOS INJ 10 MG/ML 1 ML VIAL 4 MG IM (15:31)
== END 2025-01-06 15:51 | disposition home or self-care (01) ==
PROVIDERS: PCP Family Medicine
DX: G43.909 Migraine, unspecified, not intractable, without status migrainosus (principal); F41.9 Anxiety disorder, unspecified
CPT/HCPCS: 96372; 99213; G0463; J1100